=== PATIENT | female | born 1965 | race African-American/Black ===

== ENCOUNTER → 2016-08-26 | Outpatient (CLI) | payer MEDICAID ==
--- NOTE | 2016-08-26 14:10 | WOMENS IMAGING REPORT ---
EXAM DESCRIPTION: BILAT DIAGNOSTIC MAMMO W/CAD; U/S BREAST UNILATERAL, COMPL COMPLETED DATE/TIME: 08/26/2016 10:22 am; 08/26/2016 1:14 pm REASON FOR STUDY: BILATERAL LUMPS N63.0; LEFT BREAST LUMP N63.0 N63 UNSPECIFIED LUMP IN BREAST COMPARISON: 12/25/2015 and 08/15/2014. TECHNIQUE: Standard craniocaudal and mediolateral oblique views of each breast recorded using digita l acquisition. Additional true lateral views of both breasts were also acquired. LIMITATIONS: None. FINDINGS: RIGHT BREAST MASSES: No suspicious masses. CALCIFICATIONS: No new or suspicious calcifications. ARCHITECTURAL DISTORTION: None. DEVELOPING DENSITY: None. ASYMMETRY: None noted. OTHER: No other significant findings. LEFT BREAST MASSES: No suspicious masses. CALCIFICATIONS: No new or suspicious calcifications. ARCHITECTURAL DISTORTION: None. DEVELOPING DENSITY: None. ASYMMETRY: None noted. OTHER: No other significant finding. Read with the assistance of CAD: .[facility] - R2 Cenova Version 1.3 .[facility] Imaging - R2 Cenova Version 1.3 .[facility] Imaging - R2 Cenova Version 2.4 .[facility] - R2 Cenova Version 2.4 .[facility] - R2 Lead Technical Architect Version 9.2 BREAST ULTRASOUND: TECHNIQUE: Static and dynamic grayscale images acquired of the left breast in the specific areas of c linical/mammographic concern. Selected color Doppler images recorded. ELASTOGRAPHY PERFORMED: No. LIMITATIONS: None. FINDINGS: MASS: No mass identified. Normal glandular tissue. ELASTOGRAPHY CHARACTERISTICS: Not applicable. OTHER: No other significant finding. IMPRESSION: Stable mammographic appearance of both breasts. No worrisome mammographic finding in ei ther breast. Unremarkable ultrasound of the left breast. BREAST DENSITY: b. There are scattered areas of fibroglandular density. BIRAD: 0 Incomplete: Needs additional imaging evaluation and/or prior mammograms for comparison. RECOMMENDATION: RECOMMENDED FOLLOW UP: The patient presents with clinical history of bilateral breas t lumps. However, ultrasound of only the left breast was pre authorized. For completeness, ultrasou nd of the right breast in the area of concern should be performed. SPECIFIC INTERVENTION/IMAGING/CONSULTATION RECOMMENDED:Patient will return for ultrasound of the righ t breast after authorization is obtained. COMMUNICATION:The imaging findings were discussed with the patient. She is aware that additional adva nced imaging/consultation may be required. Her referring physician has been notified. COMMENT: The patient has been notified of the results by letter per SA requirements. Additional no tification policies are in place for contacting patient with suspicious or incomplete findings. Quality ID #[id number]: The [employer] recommends an annual screening mammogram for women aged 40 years or over. This facility utilizes a reminder system to ensure that all patients receive reminder letters, and/or direct phone calls for appointments. This includes reminders for routine scr eening mammograms, diagnostic mammograms, or other Breast Imaging Interventions when appropriate. Th is patient will be placed in the appropriate reminder system. The [employer] (ACR) has developed recommendations for screening MRI of the breast s in certain patient populations, to be used in conjunction with mammography. Breast MRI surveillanc e may be appropriate for women with more than 20% lifetime risk of developing breast cancer as deter mined by genetic testing, significant family history of the disease, or history of mantle radiation f or Hodgkins Disease. ACR Practice Guidelines 2008. TECHNICAL DOCUMENTATION: FINDING NUMBER: (1) ASSESSMENT: (1) JOB ID: [id number] [employer]- All Rights Reserved
--- NOTE | 2016-08-26 14:10 | WOMENS IMAGING REPORT ---
EXAM DESCRIPTION: BILAT DIAGNOSTIC MAMMO W/CAD; U/S BREAST UNILATERAL, COMPL COMPLETED DATE/TIME: 08/26/2016 10:22 am; 08/26/2016 1:14 pm REASON FOR STUDY: BILATERAL LUMPS N63.0; LEFT BREAST LUMP N63.0 N63 UNSPECIFIED LUMP IN BREAST COMPARISON: 12/25/2015 and 08/15/2014. TECHNIQUE: Standard craniocaudal and mediolateral oblique views of each breast recorded using digita l acquisition. Additional true lateral views of both breasts were also acquired. LIMITATIONS: None. FINDINGS: RIGHT BREAST MASSES: No suspicious masses. CALCIFICATIONS: No new or suspicious calcifications. ARCHITECTURAL DISTORTION: None. DEVELOPING DENSITY: None. ASYMMETRY: None noted. OTHER: No other significant findings. LEFT BREAST MASSES: No suspicious masses. CALCIFICATIONS: No new or suspicious calcifications. ARCHITECTURAL DISTORTION: None. DEVELOPING DENSITY: None. ASYMMETRY: None noted. OTHER: No other significant finding. Read with the assistance of CAD: .[facility] - R2 Cenova Version 1.3 .[facility] Imaging - R2 Cenova Version 1.3 .[facility] Imaging - R2 Cenova Version 2.4 .[facility] - R2 Cenova Version 2.4 .[facility] - R2 Needle Loom Tender Version 9.2 BREAST ULTRASOUND: TECHNIQUE: Static and dynamic grayscale images acquired of the left breast in the specific areas of c linical/mammographic concern. Selected color Doppler images recorded. ELASTOGRAPHY PERFORMED: No. LIMITATIONS: None. FINDINGS: MASS: No mass identified. Normal glandular tissue. ELASTOGRAPHY CHARACTERISTICS: Not applicable. OTHER: No other significant finding. IMPRESSION: Stable mammographic appearance of both breasts. No worrisome mammographic finding in ei ther breast. Unremarkable ultrasound of the left breast. BREAST DENSITY: b. There are scattered areas of fibroglandular density. BIRAD: 0 Incomplete: Needs additional imaging evaluation and/or prior mammograms for comparison. RECOMMENDATION: RECOMMENDED FOLLOW UP: The patient presents with clinical history of bilateral breas t lumps. However, ultrasound of only the left breast was pre authorized. For completeness, ultrasou nd of the right breast in the area of concern should be performed. SPECIFIC INTERVENTION/IMAGING/CONSULTATION RECOMMENDED:Patient will return for ultrasound of the righ t breast after authorization is obtained. COMMUNICATION:The imaging findings were discussed with the patient. She is aware that additional adva nced imaging/consultation may be required. Her referring physician has been notified. COMMENT: The patient has been notified of the results by letter per SA requirements. Additional no tification policies are in place for contacting patient with suspicious or incomplete findings. Quality ID #[id number]: The [employer] recommends an annual screening mammogram for women aged 40 years or over. This facility utilizes a reminder system to ensure that all patients receive reminder letters, and/or direct phone calls for appointments. This includes reminders for routine scr eening mammograms, diagnostic mammograms, or other Breast Imaging Interventions when appropriate. Th is patient will be placed in the appropriate reminder system. The [employer] (ACR) has developed recommendations for screening MRI of the breast s in certain patient populations, to be used in conjunction with mammography. Breast MRI surveillanc e may be appropriate for women with more than 20% lifetime risk of developing breast cancer as deter mined by genetic testing, significant family history of the disease, or history of mantle radiation f or Hodgkins Disease. ACR Practice Guidelines 2008. TECHNICAL DOCUMENTATION: FINDING NUMBER: (1) ASSESSMENT: (1) JOB ID: [id number] [employer]- All Rights Reserved
== END ==
LOC: WI 09:56
PROVIDERS: ATTEND Internal Medicine
DX: N63 Unspecified lump in breast (principal)
CPT/HCPCS: 76641; G0204; 77066

== ENCOUNTER → 2016-09-12 | Outpatient (CLI) | payer MEDICAID ==
--- NOTE | 2016-09-12 12:10 | WOMENS IMAGING REPORT ---
EXAM DESCRIPTION: U/S BREAST UNILATERAL, COMPL COMPLETED DATE/TIME: 09/12/2016 10:42 am REASON FOR STUDY: N63 N63 UNSPECIFIED LUMP IN BREAST COMPARISON: Mammogram dated 08/26/2016. TECHNIQUE: Real-time and static grayscale imaging performed of the right breast targeted to the area of clinical/mammographic concern. Selected color Doppler images recorded. LIMITATIONS: None. FINDINGS: MASS: No mass identified. Normal glandular tissue. OTHER: No other significant finding. IMPRESSION: No suspicious findings detected by ultrasound. BIRAD: 1 Negative. RECOMMENDATION: RECOMMENDED FOLLOW-UP: Follow-up as clinically indicated. COMMENT: The [employer] (ACR) has developed recommendations for screening MRI of the breasts in certain patient populations, to be used in conjunction with mammography. Breast MRI surveillance may be appropriate for women with more than 20% lifetime risk of developing breast cancer as determined by genetic testing, significant family history of the disease, or history of mantle radiation for Hodgkins Disease. ACR Practice Guidelines 2008. TECHNICAL DOCUMENTATION: JOB ID: [id number] [employer]- All Rights Reserved <Electronically signed by JEFFRY STERLING MD in [place]> 09/12/16 1210 [facility]
== END ==
LOC: WI 14:20
PROVIDERS: ATTEND Internal Medicine
DX: N63 Unspecified lump in breast (principal)
CPT/HCPCS: 76641

== ENCOUNTER → 2016-10-24 | Outpatient (CLI) | payer MEDICAID ==
--- NOTE | 2016-10-24 12:55 | RADIOLOGY REPORT (SQ) ---
EXAM DESCRIPTION: VENOUS UNILATERAL LOWER COMPLETED DATE/TIME: 10/24/2016 12:47 pm REASON FOR STUDY: SWELLING R22.41 LOCALIZED SWELLING, MASS AND LUMP, RIGHT LOWER LIMB COMPARISON: None. TECHNIQUE: Dynamic and static faye scale and color images acquired of the right leg venous system. S elected spectral images acquired with additional compression and augmentation maneuvers. The contrala teral common femoral vein and saphenofemoral junction were also imaged. Images stored on PACS. LIMITATIONS: None. FINDINGS: RIGHT COMMON FEMORAL: Normal phasicity, compression and augmentation. No visualized echogenic material on g ray scale. No defects on color images. FEMORAL: Normal compression and augmentation. No visualized echogenic material on faye scale. No defe cts on color images. POPLITEAL: Normal compression, augmentation. No visualized echogenic material on faye scale. No defec ts on color images. CALF VESSELS: Normal compression, augmentation. No visualized echogenic material on faye scale. No de fects on color images. GSV and SSV: Normal compression, augmentation. No visualized echogenic material on faye scale. No def ects on color images. ANY DEEP VENOUS INSUFFICIENCY: Not evaluated. ANY EVIDENCE OF POPLITEAL CYST: No. OTHER: No other significant finding. LEFT COMMON FEMORAL VEIN AND SAPHENOFEMORAL JUNCTION: Normal phasicity, compression and augmentation. No visualized echogenic material on faye scale. No de fects on color images. IMPRESSION: NO EVIDENCE OF DVT OR SVT IN THE RIGHT LEG. TECHNICAL DOCUMENTATION: JOB ID: [id number] [employer]- All Rights Reserved
== END ==
LOC: SP 11:38
PROVIDERS: ATTEND Internal Medicine
DX: R22.41 Localized swelling, mass and lump, right lower limb (principal)
CPT/HCPCS: 93971

== ENCOUNTER → 2016-10-31 | Outpatient (CLI) | payer MEDICAID ==
--- NOTE | 2016-10-31 13:53 | RADIOLOGY REPORT (SQ) ---
EXAM DESCRIPTION: KNEE RIGHT 2 VIEWS COMPLETED DATE/TIME: 10/31/2016 12:39 pm REASON FOR STUDY: PAIN IN RIGHT KNEE M25.561 PAIN IN RIGHT KNEE COMPARISON: None. NUMBER OF VIEWS: Two views. TECHNIQUE: AP and lateral radiographic images acquired of the right knee. LIMITATIONS: None. FINDINGS: MINERALIZATION: Normal. BONES: No acute fracture or dislocation. No worrisome bone lesions. JOINT: There is thus small joint effusion. SOFT TISSUES: No soft tissue swelling. No radio-opaque foreign body. OTHER: No other significant finding. IMPRESSION: Small joint effusion with no acute abnormality. TECHNICAL DOCUMENTATION: JOB ID: [id number] [employer]- All Rights Reserved
== END ==
LOC: OD 12:20
PROVIDERS: ATTEND Internal Medicine
DX: M25.561 Pain in right knee (principal)

== ENCOUNTER → 2016-11-06 | Outpatient (CLI) | payer MEDICAID ==
[2016-11-07 06:39] LABS: THYROXINE (T4) 9.2 ug/dL (4.5-12.0)
[2016-11-10 15:38] LABS: IMMUNOGLOBULIN A 188 mg/dL (87-352); IMMUNOGLOBULIN G 1077 mg/dL (700-1600)
[2016-11-11 08:11] LABS: IMMUNOGLOBULIN M 26 mg/dL (26-217)
== END ==
LOC: OD 12:29
PROVIDERS: ATTEND Specialist
DX: G82.20 Paraplegia, unspecified (principal); R20.0 Anesthesia of skin; M13.80 Other specified arthritis, unspecified site
CPT/HCPCS: 36415; 82550; 82607; 82784; 84165; 84436; 84443; 84480; 85652; 86038; 86430

== ENCOUNTER 2016-11-07 15:29 | Observation (INO) | payer MEDICAID ==
[2016-11-07 16:52] LABS: HEMATOCRIT 38.5 % (36.0-47.0); HEMOGLOBIN 13.1 g/dL (12.0-15.5); HGB HCT DIFFERENCE 0.8; MEAN CORPUSCULAR HEMOGLOBIN 31.7 pg (27.0-33.4); MEAN CORPUSCULAR VOLUME 93 fl (80-97); RED BLOOD COUNT 4.13 10^6/uL (3.72-5.28); RED CELL DISTRIBUTION WIDTH 14.1 % (11.5-14.0); WHITE BLOOD COUNT 7.9 10^3/uL (4.0-10.5)
--- NOTE | 2016-11-07 17:08 | RADIOLOGY REPORT (SQ) ---
EXAM DESCRIPTION: CHEST SINGLE VIEW COMPLETED DATE/TIME: 11/07/2016 4:43 pm REASON FOR STUDY: SOB COMPARISON: AP chest 04/15/2013 EXAM PARAMETERS: NUMBER OF VIEWS: One view. TECHNIQUE: Single frontal radiographic view of the chest acquired. RADIATION DOSE: NA LIMITATIONS: None. FINDINGS: LUNGS AND PLEURA: No opacities, masses or pneumothorax. No pleural effusion. MEDIASTINUM AND HILAR STRUCTURES: No masses. Contour normal. HEART AND VASCULAR STRUCTURES: Heart normal in size. Normal vasculature. BONES: No acute findings. HARDWARE: None in the chest. OTHER: No other significant finding. IMPRESSION: NO ACUTE RADIOGRAPHIC FINDING IN THE CHEST. TECHNICAL DOCUMENTATION: JOB ID: [id number]
[2016-11-07 17:19] LABS: ALANINE AMINOTRANSFERASE 36 U/L (9-52); ALBUMIN 4.3 g/dL (3.5-5.0); ALKALINE PHOSPHATASE 105 U/L (38-126); ANION GAP 9 (5-19); ASPARTATE AMINO TRANSFERASE 16 U/L (14-36); BILIRUBIN,DIRECT 0.4 mg/dL (0.0-0.4); BILIRUBIN,TOTAL 0.6 mg/dL (0.2-1.3); BLOOD UREA NITROGEN 18 mg/dL (7-20); CALCIUM 9.7 mg/dL (8.4-10.2); CARBON DIOXIDE 35 mmol/L (22-30); CHLORIDE 95 mmol/L (98-107); CREATININE RESULT 0.71 mg/dL (0.52-1.25); GLUCOSE 106 mg/dL (75-110); POTASSIUM 3.3 mmol/L (3.6-5.0); SODIUM 139.4 mmol/L (137-145); TOTAL PROTEIN 7.3 g/dL (6.3-8.2)
[2016-11-07] MEDS ORDERED: NORMAL SALINE 250 ML with FUROSEMIDE 250 MG IV PRN ×2 (17:30)
[2016-11-07] MEDS ORDERED: (PENDING PHARMACY ID) (Fluconazole [Diflucan] 150 MG) PO SCH (19:15)
[2016-11-07] MEDS ORDERED: (PENDING PHARMACY ID) (Exenatide Microspheres [Bydureon Pen] 2 MG) SUBCUT SCH (19:15)
[2016-11-07] MEDS ORDERED: POTASSIUM CHLORIDE 10 MEQ TABLET.SA PO ONE (19:30)
--- NOTE | 2016-11-07 19:43 | PDOC H&P ---
History of Present Illness Admission Date/PCP: 11/07/16 15:29 SUSHILA QUINTERO MD History of Present Illness: CELINA GAVIN is a 51 year old female, she has a history of type 2 diabetes mellitus, she came to the office today for evaluation of progressive lower extremity swelling.She was admitted for evaluation and management of her symptoms. The serum BNP is normal this virtually rule out CHF. The urine protein creatinine ratio is normal this rule out nephrotic syndrome due to fluid retention is probably weight related and also due to medication. Past Medical History Cardiac Medical History: Reports: Hyperlipidema, Hypertension, Heart Murmur - when pt was a child Pulmonary Medical History: Reports: Asthma Denies: Tuberculosis Endocrine Medical History: Reports: Diabetes Mellitus Type 2, Hypothyroidism GI Medical History: Reports: Gastroesophageal Reflux Disease Psychiatric Medical History: Reports: Depression Past Surgical History Past Surgical History: Reports: Section, Tonsillectomy Denies: Pacemaker Social History Smoking Status: Former Smoker Frequency of Alcohol Use: Rare Hx Recreational Drug Use: No Drugs: None Hx Prescription Drug Abuse: No Family History Family History: Reviewed & Not Pertinent Parental Family History Reviewed: Yes Children Family History Reviewed: Yes Sibling(s) Family History Reviewed.: Yes Medication/Allergy Home Medications: Metformin HCl 1,000 mg PO BID 11/13/11 Pravastatin Sodium [Pravachol] 40 mg PO DAILY 11/13/11 Clopidogrel Bisulfate [Plavix 75 Mg Tablet] 75 mg PO DAILY 11/15/11 Furosemide [Lasix 40 mg Tablet] 40 mg PO QAM 04/15/13 Acetaminophen [Tylenol] 650 mg PO Q6 PRN 11/07/16 Canagliflozin [Invokana] 300 mg PO DAILY 11/07/16 Exenatide Microspheres [Bydureon Pen] 2 mg SUBCUT ASDIR 11/07/16 Fluconazole [Diflucan] 150 mg PO ASDIR 11/07/16 Glipizide 10 mg PO DAILY 11/07/16 Insulin Glargine,Hum.rec.anlog [Lantus Insulin 100 Unit/mL] 25 unit SUBCUT BID 11/07/16 Losartan/Hydrochlorothiazide [Losartan-Hctz 100-25 mg Tab] 1 tab PO DAILY Multivit with Iron,Minerals [Compete] 1 each PO DAILY 11/07/16 Olopatadine HCl [Pazeo] 1 drop OU DAILY 11/07/16 Pioglitazone HCl [Actos] 30 mg PO DAILY 11/07/16 Potassium Chloride [Klor-Con] 20 meq PO DAILY 11/07/16 Varenicline Tartrate [Chantix] 1 tab PO BID 11/07/16 Allergies/Adverse Reactions: JEREMY Inhibitors [Jeremy Inhibitors] Allergy (Verified 04/15/13 14:43) aspirin [Aspirin] Allergy (Verified 04/15/13 14:43) cyclosporine [Cyclosporine] Allergy (Verified 04/15/13 14:43) iodine [Iodine] Allergy (Verified 04/15/13 14:43) Penicillins Allergy (Verified 04/15/13 14:43) nsaid Allergy (Uncoded 11/13/11 21:57) Review of Systems Constitutional: ABSENT: chills, fever(s), headache(s), weight gain, weight loss Eyes: ABSENT: visual disturbances Ears: ABSENT: hearing changes Cardiovascular: ABSENT: chest pain, dyspnea on exertion, edema, orthropnea, palpitations Respiratory: ABSENT: cough, hemoptysis Gastrointestinal: ABSENT: abdominal pain, constipation, diarrhea, hematemesis, hematochezia, nausea, vomiting Genitourinary: ABSENT: dysuria, hematuria Musculoskeletal: ABSENT: joint swelling Integumentary: ABSENT: rash, wounds Neurological: ABSENT: abnormal gait, abnormal speech, confusion, dizziness, focal weakness, syncope Psychiatric: ABSENT: anxiety, depression, homidical ideation, suicidal ideation Endocrine: ABSENT: cold intolerance, heat intolerance, menstrual abnormalities, polydipsia, polyuria Hematologic/Lymphatic: ABSENT: easy bleeding, easy bruising, lymphadenopathy Physical Exam Vital Signs: Temp Pulse Resp BP Pulse Ox 97.8 F 70 19 107/61 100 11/07/16 16:28 11/07/16 18:12 11/07/16 16:28 11/07/16 16:28 11/07/16 16:28 Intake & Output 11/06/16 11/07/16 11/08/16 06:59 06:59 06:59 Weight 109.2 kg General appearance: PRESENT: no acute distress, well-developed, well-nourished Head exam: PRESENT: atraumatic, normocephalic Eye exam: ABSENT: scleral icterus Ear exam: PRESENT: normal external ear exam Mouth exam: PRESENT: moist, tongue midline Neck exam: PRESENT: full ROM Respiratory exam: PRESENT: clear to auscultation franco Cardiovascular exam: PRESENT: RRR. ABSENT: diastolic murmur, rubs, systolic murmur Pulses: PRESENT: normal dorsalis pedis pul, +2 pedal pulses bilateral Vascular exam: PRESENT: normal capillary refill GI/Abdominal exam: PRESENT: normal bowel sounds, soft Rectal exam: PRESENT: deferred Extremities exam: PRESENT: pedal edema Neurological exam: PRESENT: alert, awake, oriented to person, oriented to place , oriented to time, oriented to situation, CN II-XII grossly intact. ABSENT: motor sensory deficit Psychiatric exam: PRESENT: appropriate affect, normal mood Skin exam: PRESENT: dry, intact, warm Results Laboratory Results: 11/07/16 16:45 11/07/16 16:45 11/07/16 11/07/16 16:45 16:45 WBC 7.9 RBC 4.13 Hgb 13.1 Hct 38.5 MCV 93 MCH 31.7 MCHC 34.0 RDW 14.1 H Plt Count 293 Sodium 139.4 Potassium 3.3 L Chloride 95 L Carbon Dioxide 35 H Anion Gap 9 BUN 18 Creatinine 0.71 Est GFR ( Amer) > 60 Est GFR (Non-Af Amer) > 60 Glucose 106 Calcium 9.7 Total Bilirubin 0.6 AST 16 ALT 36 Alkaline Phosphatase 105 Total Protein 7.3 Albumin 4.3 11/07/16 16:45 NT-Pro-B Natriuret Pep 55 Impressions: Chest X-Ray 11/07/16 00:00 IMPRESSION: NO ACUTE RADIOGRAPHIC FINDING IN THE CHEST. Assessment & Plan - Diagnosis (1) Edema, unspecified Qualifiers: Edema type: unspecified Qualified Code(s): R60.9 - Edema, unspecified Is this a current diagnosis for this admission?: Yes Plan: Patient was admitted for observation for evaluation and management of lower extremity edema (2) Morbid (severe) obesity due to excess calories Is this a current diagnosis for this admission?: Yes (3) Diabetes mellitus type 2 in obese Is this a current diagnosis for this admission?: Yes
[2016-11-07 19:59] LABS: APPEARANCE,URINE CLEAR; BILIRUBIN,URINE NEGATIVE (NEGATIVE); GLUCOSE, URINE >=500 mg/dL (NEGATIVE); KETONES,URINE NEGATIVE (NEGATIVE); LEUKOCYTE ESTERASE,URINE NEGATIVE (NEGATIVE); NITRITE,URINE NEGATIVE (NEGATIVE); PROTEIN,URINE NEGATIVE (NEGATIVE); URINE SPECIFIC GRAVITY 1.018; UROBILINOGEN,URINE NEGATIVE mg/dL (<2.0)
[2016-11-07 20:10] LABS: URINE CREATININE 52.6 mg/dL (15-278); URINE PROTEIN 9.4 mg/dL (<12)
[2016-11-07] MEDS: ACETAMINOPHEN 325 MG TABLET PO PRN (20:20)
--- NOTE | 2016-11-07 20:50 | PDOC DISCHARGE SUMMARY ---
General - Admit/Disc Date/PCP Admission Date/Primary Care Provider: 11/07/16 15:29 SUSHILA QUINTERO MD Discharge Date: 11/08/16 - Discharge Diagnosis (1) Edema, unspecified Is this a current diagnosis for this admission?: Yes (2) Morbid (severe) obesity due to excess calories Is this a current diagnosis for this admission?: Yes (3) Diabetes mellitus type 2 in obese Is this a current diagnosis for this admission?: Yes - Additional Information Discharge Activity: Activity As Tolerated Home Medications: Metformin HCl 1,000 mg PO BID 11/13/11 Pravastatin Sodium [Pravachol] 40 mg PO DAILY 11/13/11 Clopidogrel Bisulfate [Plavix 75 mg Tablet] 75 mg PO DAILY 11/15/11 Furosemide [Lasix 40 mg Tablet] 40 mg PO QAM 04/15/13 Acetaminophen [Tylenol] 650 mg PO Q6 PRN 11/07/16 Canagliflozin [Invokana] 300 mg PO DAILY 11/07/16 Exenatide Microspheres [Bydureon Pen] 2 mg SUBCUT ASDIR 11/07/16 Fluconazole [Diflucan] 150 mg PO ASDIR 11/07/16 Glipizide 10 mg PO DAILY 11/07/16 Insulin Glargine,Hum.rec.anlog [Lantus Insulin 100 Unit/mL] 25 unit SUBCUT BID 11/07/16 Losartan/Hydrochlorothiazide [Losartan-Hctz 100-25 mg Tab] 1 tab PO DAILY Multivit with Iron,Minerals [Compete] 1 each PO DAILY 11/07/16 Olopatadine HCl [Pazeo] 1 drop OU DAILY 11/07/16 Pioglitazone HCl [Actos] 30 mg PO DAILY 11/07/16 Potassium Chloride [Klor-Con] 20 meq PO DAILY 11/07/16 Varenicline Tartrate [Chantix] 1 tab PO BID 11/07/16 History of Present Illness History of Present Illness: CELINA GAVIN is a 51 year old female, she has a history of type 2 diabetes mellitus, she came to the office today for evaluation of progressive lower extremity swelling.She was admitted for evaluation and management of her symptoms. The serum BNP is normal this virtually rule out CHF. The urine protein creatinine ratio is normal this rule out nephrotic syndrome due to fluid retention is probably weight related and also due to medication. Hospital Course Hospital Course: She was admitted for observation and evaluation of lower extremity edema she was treated with Lasix infusion Physical Exam Vital Signs: Temp Pulse Resp BP Pulse Ox 98.4 F 77 14 111/60 100 11/07/16 19:49 11/07/16 19:49 11/07/16 19:49 11/07/16 19:49 11/07/16 19:49 Intake & Output 11/06/16 11/07/16 11/08/16 06:59 06:59 06:59 Weight 109.2 kg General appearance: PRESENT: no acute distress, well-developed, well-nourished Head exam: PRESENT: atraumatic, normocephalic Eye exam: PRESENT: conjunctiva pink, EOMI, PERRLA Ear exam: PRESENT: normal external ear exam Mouth exam: PRESENT: moist, tongue midline Neck exam: PRESENT: full ROM Respiratory exam: PRESENT: clear to auscultation franco Cardiovascular exam: PRESENT: RRR, +S1, +S2 Pulses: PRESENT: normal dorsalis pedis pul, +2 pedal pulses bilateral Vascular exam: PRESENT: normal capillary refill GI/Abdominal exam: PRESENT: normal bowel sounds, soft Rectal exam: PRESENT: deferred Neurological exam: PRESENT: alert, awake, oriented to person, oriented to place , oriented to time, oriented to situation, CN II-XII grossly intact Psychiatric exam: PRESENT: appropriate affect, normal mood Skin exam: PRESENT: dry, intact, warm Results Laboratory Results: 11/07/16 16:45 11/07/16 16:45 11/07/16 11/07/16 11/07/16 16:45 16:45 19:34 WBC 7.9 RBC 4.13 Hgb 13.1 Hct 38.5 MCV 93 MCH 31.7 MCHC 34.0 RDW 14.1 H Plt Count 293 Sodium 139.4 Potassium 3.3 L Chloride 95 L Carbon Dioxide 35 H Anion Gap 9 BUN 18 Creatinine 0.71 Est GFR ( Amer) > 60 Est GFR (Non-Af Amer) > 60 Glucose 106 Calcium 9.7 Total Bilirubin 0.6 AST 16 ALT 36 Alkaline Phosphatase 105 Total Protein 7.3 Albumin 4.3 Urine Color STRAW Urine Appearance CLEAR Urine pH 7.0 Ur Specific [place] 1.018 Urine Protein NEGATIVE Urine Glucose (UA) >=500 H Urine Ketones NEGATIVE Urine Blood NEGATIVE Urine Nitrite NEGATIVE Ur Leukocyte Esterase NEGATIVE Urine WBC (Auto) 0 Urine RBC (Auto) 0 11/07/16 16:45 NT-Pro-B Natriuret Pep 55 Impressions: Chest X-Ray 11/07/16 00:00 IMPRESSION: NO ACUTE RADIOGRAPHIC FINDING IN THE CHEST.
[2016-11-07] MEDS: INSULIN GLARGINE,HUM.REC.ANLOG 300 UNIT/3 ML INSULN.PEN SUBCUT SCH (21:39)
[2016-11-07 22:53] LABS: HEMATOCRIT 40.6 % (36.0-47.0); HEMOGLOBIN 13.8 g/dL (12.0-15.5); HGB HCT DIFFERENCE 0.8; MEAN CORPUSCULAR HEMOGLOBIN 31.9 pg (27.0-33.4); MEAN CORPUSCULAR HGB CONC 33.9 g/dL (32.0-36.0); MEAN CORPUSCULAR VOLUME 94 fl (80-97); RED BLOOD COUNT 4.31 10^6/uL (3.72-5.28)
[2016-11-07 23:03] LABS: PROTHROMBIN TIME 12.5 SEC (11.4-15.4)
[2016-11-07 23:04] LABS: PARTIAL THROMBOPLASTIN TIME 24.8 SEC (23.5-35.8)
[2016-11-07 23:07] LABS: CREATININE RESULT 0.66 mg/dL (0.52-1.25)
[2016-11-08] MEDS: ACETAMINOPHEN 325 MG TABLET PO PRN ×2 (03:41→09:09)
[2016-11-08] MEDS ORDERED: METFORMIN HCL 500 MG TABLET PO SCH (08:00)
[2016-11-08] MEDS ORDERED: FUROSEMIDE 40 MG TABLET PO SCH (08:00)
[2016-11-08 09:04] LABS: BLOOD UREA NITROGEN 19 mg/dL (7-20); CALCIUM 9.6 mg/dL (8.4-10.2); CHLORIDE 92 mmol/L (98-107); CREATININE RESULT 0.73 mg/dL (0.52-1.25); GLUCOSE 132 mg/dL (75-110); POTASSIUM 3.4 mmol/L (3.6-5.0); SODIUM 141.2 mmol/L (137-145)
[2016-11-08] MEDS: INSULIN GLARGINE,HUM.REC.ANLOG 300 UNIT/3 ML INSULN.PEN SUBCUT SCH (09:05)
[2016-11-08 09:10] LABS: ANION GAP 9 (5-19)
[2016-11-08 09:19] LABS: CARBON DIOXIDE 40 mmol/L (22-30)
--- NOTE | 2016-11-08 09:55 | PDOC PROGRESS REPORT ---
Subjective Progress Note for:: 11/08/16 Subjective:: Patient is currently doing fair patient was actually discharged but patients wants to stay another day Since denied any chest pain without any shortness of the breath Potassium was 3.4 this morning Physical Exam Vital Signs: Temp Pulse Resp BP Pulse Ox 98.2 F 63 16 108/69 100 11/08/16 05:13 11/08/16 07:00 11/08/16 05:13 11/08/16 05:13 11/08/16 05:13 Intake & Output 11/07/16 11/08/16 11/09/16 06:59 06:59 06:59 Intake Total 1614 Output Total 5300 Balance -3686 Weight 109.2 kg General appearance: PRESENT: no acute distress, well-developed, well-nourished Head exam: PRESENT: atraumatic, normocephalic Eye exam: PRESENT: conjunctiva pink, EOMI, PERRLA. ABSENT: scleral icterus Ear exam: PRESENT: normal external ear exam Mouth exam: PRESENT: moist, tongue midline Neck exam: PRESENT: full ROM. ABSENT: carotid bruit, JVD, lymphadenopathy, thyromegaly Respiratory exam: PRESENT: clear to auscultation franco Cardiovascular exam: PRESENT: RRR. ABSENT: diastolic murmur, rubs, systolic murmur Pulses: PRESENT: normal dorsalis pedis pul, +2 pedal pulses bilateral Vascular exam: PRESENT: normal capillary refill GI/Abdominal exam: PRESENT: normal bowel sounds, soft. ABSENT: distended, guarding, mass, organolmegaly, rebound, tenderness Rectal exam: PRESENT: deferred Neurological exam: PRESENT: alert, awake, oriented to person, oriented to place , oriented to time, oriented to situation, CN II-XII grossly intact. ABSENT: motor sensory deficit Psychiatric exam: PRESENT: appropriate affect, normal mood. ABSENT: homicidal ideation, suicidal ideation Skin exam: PRESENT: dry, intact, warm. ABSENT: cyanosis, rash Results Laboratory Results: 11/07/16 22:35 11/08/16 07:54 11/07/16 11/07/16 11/07/16 16:45 16:45 19:34 WBC 7.9 RBC 4.13 Hgb 13.1 Hct 38.5 MCV 93 MCH 31.7 MCHC 34.0 RDW 14.1 H Plt Count 293 Sodium 139.4 Potassium 3.3 L Chloride 95 L Carbon Dioxide 35 H Anion Gap 9 BUN 18 Creatinine 0.71 Est GFR ( Amer) > 60 Est GFR (Non-Af Amer) > 60 Glucose 106 Calcium 9.7 Total Bilirubin 0.6 AST 16 ALT 36 Alkaline Phosphatase 105 Total Protein 7.3 Albumin 4.3 Urine Color STRAW Urine Appearance CLEAR Urine pH 7.0 Ur Specific [place] 1.018 Urine Protein NEGATIVE Urine Glucose (UA) >=500 H Urine Ketones NEGATIVE Urine Blood NEGATIVE Urine Nitrite NEGATIVE Ur Leukocyte Esterase NEGATIVE Urine WBC (Auto) 0 Urine RBC (Auto) 0 11/07/16 11/07/16 11/08/16 22:35 22:35 07:54 WBC 10.0 RBC 4.31 Hgb 13.8 Hct 40.6 MCV 94 MCH 31.9 MCHC 33.9 RDW 14.0 Plt Count 326 Sodium 141.2 Potassium 3.4 L Chloride 92 L Carbon Dioxide 40 H* Anion Gap 9 BUN 19 Creatinine 0.66 0.73 Est GFR ( Amer) > 60 > 60 Est GFR (Non-Af Amer) > 60 > 60 Glucose 132 H Calcium 9.6 Total Bilirubin AST ALT Alkaline Phosphatase Total Protein Albumin Urine Color Urine Appearance Urine pH Ur Specific [place] Urine Protein Urine Glucose (UA) Urine Ketones Urine Blood Urine Nitrite Ur Leukocyte Esterase Urine WBC (Auto) Urine RBC (Auto) 11/07/16 16:45 NT-Pro-B Natriuret Pep 55 Impressions: Chest X-Ray 11/07/16 00:00 IMPRESSION: NO ACUTE RADIOGRAPHIC FINDING IN THE CHEST. Assessment & Plan - Diagnosis (1) Diabetes mellitus type 2 in obese Is this a current diagnosis for this admission?: Yes (2) Edema, unspecified Qualifiers: Edema type: unspecified Qualified Code(s): R60.9 - Edema, unspecified Is this a current diagnosis for this admission?: Yes (3) Morbid (severe) obesity due to excess calories Is this a current diagnosis for this admission?: Yes - Time Time Spent with patient: 15-24 minutes Medications reviewed and adjusted accordingly: Yes Anticipated discharge: Home Within: Other - Inpatient Certification Medical Necessity: Need Close Monitoring Due to Risk of Patient Decompensation 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 Lasix and continues to monitor for the next 24 hours and repeat the lab in the morning
[2016-11-08] MEDS ORDERED: PIOGLITAZONE HCL 30 MG TABLET PO SCH (10:00)
[2016-11-08] MEDS ORDERED: OLOPATADINE HCL 0.1% OPH SOLN 5 ML OU SCH (10:00)
[2016-11-08] MEDS ORDERED: GLIPIZIDE 10 MG TABLET PO SCH (10:00)
[2016-11-08] MEDS ORDERED: MULTIVITAMINS W-IRON TABLET, CHEWABLE PO SCH (10:00)
[2016-11-08] MEDS ORDERED: (PENDING PHARMACY ID) (Losartan/Hydrochlorothiazide [Losartan-Hctz 100-25 Mg Tab] 1 TAB) PO SCH (10:00)
[2016-11-08] MEDS ORDERED: VARENICLINE TARTRATE 1 MG TABLET PO SCH (10:00)
[2016-11-08] MEDS ORDERED: ATORVASTATIN CALCIUM 10 MG TABLET PO SCH (10:00)
[2016-11-08] MEDS ORDERED: (PENDING PHARMACY ID) (Canagliflozin [Invokana] 300 MG) PO SCH (10:00)
[2016-11-08] MEDS ORDERED: LOSARTAN POTASSIUM 50 MG TABLET PO SCH (10:00)
[2016-11-08] MEDS ORDERED: HYDROCHLOROTHIAZIDE 25 MG TABLET PO SCH (10:00)
[2016-11-08] MEDS ORDERED: POTASSIUM CHLORIDE 10 MEQ TABLET.SA PO SCH (10:00)
[2016-11-08] MEDS ORDERED: (PENDING PHARMACY ID) (Pravastatin Sodium [Pravachol] 40 MG) PO SCH (10:00)
[2016-11-08] MEDS ORDERED: MULTIVIT WITH IRON MINERALS PO SCH (10:00)
[2016-11-08] MEDS ORDERED: CLOPIDOGREL BISULFATE 75 MG TABLET PO SCH (10:00)
[2016-11-08] MEDS ORDERED: ENOXAPARIN SODIUM INJ 40 MG/0.4 ML DISP.SYRIN SUBCUT SCH (10:00)
[2016-11-08 11:30] VITALS: BP 107/61
[2016-11-08] MEDS ORDERED: PHARMACY COMMUNICATION ORDER MC SCH (18:00)
== END 2016-11-08 12:15 | disposition home or self-care (01) ==
LOC: 5TH 15:29 → 3N 15:52
PROVIDERS: ADMIT Internal Medicine; ATTEND Internal Medicine
DX: R60.9 Edema, unspecified (principal); E66.01 Morbid (severe) obesity due to excess calories; E11.9 Type 2 diabetes mellitus without complications; I10 Essential (primary) hypertension; E78.5 Hyperlipidemia, unspecified; Z79.4 Long term (current) use of insulin; Z79.899 Other long term (current) drug therapy; Z79.02 Long term (current) use of antithrombotics/antiplatelets; Z68.35 Body mass index [BMI] 35.0-35.9, adult
CPT/HCPCS: 36415 ×2; 87040; 82962 ×2; 82565; 84156; 82570; 85027; 85610; 85730; 80076; 80048 ×2; 81001; 83036; 83880; 71010; G0378 ×3; G0379; J3490 ×10; J1940; J1815; J1650; J7050

== ENCOUNTER → 2017-03-07 | Outpatient (CLI) | payer MEDICAID ==
[2017-03-07 14:57] LABS: CHLAM PCR NOT DETECTED (NOT DETECT); GON PCR NOT DETECTED (NOT DETECT)
== END ==
LOC: LAB 13:02
PROVIDERS: ATTEND Emergency Medicine
DX: N94.89 Other specified conditions associated with female genital organs and menstrual cycle (principal); L29.8 Other pruritus
CPT/HCPCS: 87491; 87591

== ENCOUNTER → 2018-03-31 | Outpatient (CLI) | payer MEDICAID ==
--- NOTE | 2018-03-31 09:38 | RADIOLOGY REPORT (SQ) ---
EXAM DESCRIPTION: CT ABD/PELVIS NO ORAL OR IV COMPLETED DATE/TIME: 03/31/2018 9:29 am REASON FOR STUDY: ABDOMINAL PAIN R10.9 UNSPECIFIED ABDOMINAL PAIN COMPARISON: None. TECHNIQUE: CT scan of the abdomen and pelvis performed without intravenous or oral contrast. Images reviewed with lung, soft tissue, and bone windows. Reconstructed coronal and sagittal MPR images revi ewed. All images stored on PACS. All CT scanners at this facility use dose modulation, iterative reconstruction, and/or weight based d osing when appropriate to reduce radiation dose to as low as reasonably achievable (ALARA). [facility]: Dose Right [facility]: CareDose [facility]: Dose Right [facility]: Teradose 4D [facility]: Smart AccuRev RADIATION DOSE: CT Rad equipment meets quality standard of care and radiation dose reduction techniq ues were employed. CTDIvol: 9.2 mGy. DLP: 493 mGy-cm.mGy. LIMITATIONS: None. FINDINGS: LOWER CHEST: No significant findings. No nodules or infiltrates. NON-CONTRASTED LIVER, SPLEEN, ADRENALS: Evaluation limited by lack of IV contrast. No identified sign ificant masses. PANCREAS: No masses. No peripancreatic inflammatory changes. GALLBLADDER: No identified stones by CT criteria. No inflammatory changes to suggest cholecystitis. RIGHT KIDNEY AND URETER: No suspicious masses. Assessment limited by lack of IV contrast. There are small nonobstructing stone in the lower pole. No hydronephrosis or hydroureter. LEFT KIDNEY AND URETER: No suspicious masses. Assessment limited by lack of IV contrast. There are small nonobstructing stones in the lower pole. No hydronephrosis or hydroureter. AORTA AND RETROPERITONEUM: No aneurysm. No retroperitoneal masses or adenopathy. BOWEL AND PERITONEAL CAVITY: No obvious masses or inflammatory changes. No free fluid. APPENDIX: Normal. PELVIS, BLADDER, AND ABDOMINAL WALL:No abnormal masses. No free fluid. Bladder normal. BONES: No significant findings. OTHER: No other significant finding. IMPRESSION: Small nonobstructing bilateral renal calculi. No acute findings in the abdomen or pelvi s. COMMENT: Quality ID # [id number]: Final reports with documentation of one or more dose reduction techniques (e.g., Automated exposure control, adjustment of the mA and/or kV according to patient size, use of iterative reconstruction technique) TECHNICAL DOCUMENTATION: JOB ID: [id number]- All Rights Reserved Reading location - IP/workstation name: [email or web address]
== END ==
LOC: RAD 08:55
PROVIDERS: ATTEND Internal Medicine
DX: R10.9 Unspecified abdominal pain (principal)
CPT/HCPCS: 74176

== ENCOUNTER 2018-08-25 15:50 | Observation (INO) | payer MEDICAID ==
[2018-08-25] MEDS ORDERED: ASPIRIN 81 MG TABLET, CHEWABLE PO ONE (17:00)
[2018-08-25] MEDS ORDERED: CLOPIDOGREL BISULFATE 300 MG TABLET PO ONE (17:00)
[2018-08-25 18:07] LABS: ABSOLUTE EOSINOPHILS # (AUTO) 0.2 10^3/uL (0.0-0.6); ABSOLUTE LYMPHOCYTES (AUTO) 3.3 10^3/uL (0.5-4.7); ABSOLUTE MONOCYTES (AUTO) 0.5 10^3/uL (0.1-1.4); ABSOLUTE NEUT (AUTO) 1.8 10^3/uL (1.7-8.2); BASOPHILS % (AUTO) 0.6 % (0-2); EOSINOPHILS % (AUTO) 3.7 % (0-6); HEMATOCRIT 38.5 % (36.0-47.0); HEMOGLOBIN 13.1 g/dL (12.0-15.5); LYMPHOCYTES % (AUTO) 56.9 % (13-45); MEAN CORPUSCULAR HEMOGLOBIN 31.6 pg (27.0-33.4); MEAN CORPUSCULAR HGB CONC 34.1 g/dL (32.0-36.0); MEAN CORPUSCULAR VOLUME 93 fl (80-97); PLATELET COUNT 309 10^3/uL (150-450); RED BLOOD COUNT 4.15 10^6/uL (3.72-5.28); SEGMENTED NEUTROPHILS % (AUTO) 30.8 % (42-78); TOTAL CELLS COUNTED % (AUTO) 100 %; WHITE BLOOD COUNT 5.8 10^3/uL (4.0-10.5)
[2018-08-25 18:21] LABS: ALANINE AMINOTRANSFERASE 19 U/L (9-52); ALBUMIN 4.5 g/dL (3.5-5.0); ALKALINE PHOSPHATASE 83 U/L (38-126); ANION GAP 10 (5-19); ASPARTATE AMINO TRANSFERASE 20 U/L (14-36); BILIRUBIN,DIRECT 0.3 mg/dL (0.0-0.4); BILIRUBIN,TOTAL 0.3 mg/dL (0.2-1.3); BLOOD UREA NITROGEN 22 mg/dL (7-20); CALCIUM 9.4 mg/dL (8.4-10.2); CARBON DIOXIDE 31 mmol/L (22-30); CHLORIDE 99 mmol/L (98-107); GLUCOSE 98 mg/dL (75-110); POTASSIUM 3.1 mmol/L (3.6-5.0); SODIUM 140.3 mmol/L (137-145); TOTAL PROTEIN 7.9 g/dL (6.3-8.2)
[2018-08-25 18:32] LABS: CREATINE KINASE MB 0.94 ng/mL (<4.55)
[2018-08-25 18:36] LABS: TROPONIN I < 0.012 ng/mL
--- NOTE | 2018-08-25 18:42 | RADIOLOGY REPORT (SQ) ---
EXAM DESCRIPTION: CHEST 2 VIEWS COMPLETED DATE/TIME: 08/25/2018 6:32 pm REASON FOR STUDY: Chest pain COMPARISON: 04/15/2013 TECHNIQUE: Frontal and lateral radiographic views of the chest acquired. NUMBER OF VIEWS: Two view. LIMITATIONS: None. FINDINGS: LUNGS AND PLEURA: No pneumothorax. No consolidation or pleural effusion. MEDIASTINUM AND HILAR STRUCTURES: Stable. HEART AND VASCULAR STRUCTURES: Stable. BONES: No acute findings. HARDWARE: None in the chest. OTHER: No other significant finding. IMPRESSION: NO ACUTE FINDINGS. TECHNICAL DOCUMENTATION: JOB ID: [id number] [employer]- All Rights Reserved Reading location - IP/workstation name: [email or web address]
[2018-08-25] MEDS ORDERED: (PENDING PHARMACY ID) (Potassium Chloride [Klor-Con M20] 40 MEQ) PO SCH (19:00)
[2018-08-25] MEDS ORDERED: (PENDING PHARMACY ID) (Pravastatin Sodium [Pravachol] 40 MG) PO SCH (19:00)
[2018-08-25] MEDS ORDERED: MULTIVIT WITH IRON MINERALS PO SCH (19:00)
[2018-08-25] MEDS ORDERED: (PENDING PHARMACY ID) (Losartan/Hydrochlorothiazide [Losartan-Hctz 100-25 Mg Tab] 1 TAB) PO SCH (19:00)
[2018-08-25] MEDS ORDERED: (PENDING PHARMACY ID) (Empagliflozin [Jardiance] 25 MG) PO SCH (19:00)
[2018-08-25] MEDS ORDERED: SEMAGLUTIDE 0.25 MG SQ SCH (19:00)
--- NOTE | 2018-08-25 19:35 | PDOC H&P ---
History of Present Illness Admission Date/PCP: 08/25/18 15:50 SUSHILA QUINTERO MD History of Present Illness: CELINA GAVIN is a 52 year old female,She came to the office today for evaluation of chest pain, The chest pain is substernal, it radiates to the left upper extremities, she has multiple risk factors for ischemic heart disease Past Medical History Cardiac Medical History: Reports: Hyperlipidema, Hypertension, Heart Murmur - when pt was a child Pulmonary Medical History: Reports: Asthma Denies: Tuberculosis Endocrine Medical History: Reports: Diabetes Mellitus Type 2, Hypothyroidism GI Medical History: Reports: Gastroesophageal Reflux Disease Psychiatric Medical History: Reports: Depression Past Surgical History Past Surgical History: Reports: Section, Tonsillectomy Denies: Pacemaker Social History Smoking Status: Current Every Day Smoker Frequency of Alcohol Use: None Hx Recreational Drug Use: No Drugs: None Hx Prescription Drug Abuse: No Family History Family History: Reviewed & Not Pertinent Parental Family History Reviewed: Yes Children Family History Reviewed: Yes Sibling(s) Family History Reviewed.: Yes Medication/Allergy Home Medications: Pravastatin Sodium [Pravachol] 40 mg PO DAILY 11/13/11 Clopidogrel Bisulfate [Plavix 75 mg Tablet] 75 mg PO DAILY 11/15/11 Furosemide [Lasix 40 mg Tablet] 40 mg PO QAM 04/15/13 Exenatide Microspheres [Bydureon Pen] 2 mg SUBCUT Q7D 11/07/16 Insulin Glargine,Hum.rec.anlog [Lantus Insulin 100 Unit/mL Insulin Pen] 25 unit SUBCUT DAILY 11/07/16 Losartan/Hydrochlorothiazide [Losartan-Hctz 100-25 mg Tab] 1 tab PO DAILY 11/07 Multivit with Iron,Minerals [Compete] 1 each PO DAILY 11/07/16 Diphenhydramine HCl [Benadryl] 75 mg PO ASDIR PRN 08/25/18 Doxepin HCl 75 mg PO QHS 08/25/18 Empagliflozin [Jardiance] 25 mg PO DAILY 08/25/18 Potassium Chloride [Klor-Con M20] 40 meq PO DAILY 08/25/18 Semaglutide [Ozempic] 0.25 mg SQ Q7D 08/25/18 Topiramate [Topamax] 200 mg PO QHS 08/25/18 Travoprost [Travatan Z] 1 drop OS QHS 08/25/18 Allergies/Adverse Reactions: JEREMY Inhibitors [Jeremy Inhibitors] Allergy (Verified 04/15/13 14:43) aspirin [Aspirin] Allergy (Verified 04/15/13 14:43) cyclosporine [Cyclosporine] Allergy (Verified 04/15/13 14:43) iodine [Iodine] Allergy (Verified 04/15/13 14:43) Penicillins Allergy (Verified 04/15/13 14:43) onion Adverse Reaction (Verified 08/25/18 18:03) nsaid Allergy (Uncoded 11/13/11 21:57) Review of Systems Constitutional: ABSENT: chills, fever(s), headache(s), weight gain, weight loss Eyes: ABSENT: visual disturbances Ears: ABSENT: hearing changes Cardiovascular: PRESENT: chest pain Respiratory: ABSENT: cough, hemoptysis Gastrointestinal: ABSENT: abdominal pain, constipation, diarrhea, hematemesis, hematochezia, nausea, vomiting Genitourinary: ABSENT: dysuria, hematuria Musculoskeletal: ABSENT: joint swelling Integumentary: ABSENT: rash, wounds Neurological: ABSENT: abnormal gait, abnormal speech, confusion, dizziness, focal weakness, syncope Psychiatric: ABSENT: anxiety, depression, homidical ideation, suicidal ideation Endocrine: ABSENT: cold intolerance, heat intolerance, menstrual abnormalities, polydipsia, polyuria Hematologic/Lymphatic: ABSENT: easy bleeding, easy bruising, lymphadenopathy Physical Exam Vital Signs: Temp Pulse Resp BP Pulse Ox 97.5 F 86 16 92/60 L 100 08/25/18 17:06 08/25/18 17:06 08/25/18 17:06 08/25/18 17:06 08/25/18 17:06 Intake & Output 08/24/18 08/25/18 08/26/18 06:59 06:59 06:59 Weight 90.4 kg General appearance: PRESENT: no acute distress, well-developed, well-nourished Head exam: PRESENT: atraumatic, normocephalic Eye exam: PRESENT: conjunctiva pink, EOMI, PERRLA Ear exam: PRESENT: normal external ear exam Mouth exam: PRESENT: moist, tongue midline Neck exam: PRESENT: full ROM Respiratory exam: PRESENT: clear to auscultation franco Cardiovascular exam: PRESENT: RRR, +S1, +S2 Vascular exam: PRESENT: normal capillary refill GI/Abdominal exam: PRESENT: normal bowel sounds, soft Rectal exam: PRESENT: deferred Neurological exam: PRESENT: alert, awake, oriented to person, oriented to place, oriented to time, oriented to situation, CN II-XII grossly intact Psychiatric exam: PRESENT: appropriate affect, normal mood Skin exam: PRESENT: dry, intact, warm Results Laboratory Results: 08/25/18 17:00 08/25/18 17:00 08/25/18 08/25/18 17:00 17:00 WBC 5.8 RBC 4.15 Hgb 13.1 Hct 38.5 MCV 93 MCH 31.6 MCHC 34.1 RDW 13.0 Plt Count 309 Seg Neutrophils % 30.8 L Lymphocytes % 56.9 H Monocytes % 8.0 Eosinophils % 3.7 Basophils % 0.6 Absolute Neutrophils 1.8 Absolute Lymphocytes 3.3 Absolute Monocytes 0.5 Absolute Eosinophils 0.2 Absolute Basophils 0.0 Sodium 140.3 Potassium 3.1 L Chloride 99 Carbon Dioxide 31 H Anion Gap 10 BUN 22 H Creatinine 1.22 Est GFR ( Amer) 56 L Est GFR (Non-Af Amer) 46 L Glucose 98 Calcium 9.4 Total Bilirubin 0.3 AST 20 ALT 19 Alkaline Phosphatase 83 Total Protein 7.9 Albumin 4.5 08/25/18 08/25/18 08/25/18 17:00 17:00 17:00 Creatine Kinase 144 H CK-MB (CK-2) 0.94 Troponin I < 0.012 NT-Pro-B Natriuret Pep 47 Impressions: Chest X-Ray 08/25/18 00:00 IMPRESSION: NO ACUTE FINDINGS. Assessment & Plan - Diagnosis (1) Chest pain Qualifiers: Chest pain type: unspecified Qualified Code(s): R07.9 - Chest pain, unspecified Is this a current diagnosis for this admission?: Yes Plan: She has chest pain with abnormal EKG, she has multiple risk factors for ischemic heart disease
[2018-08-25] MEDS: POTASSIUM CHLORIDE 10 MEQ CAPSULE.ER PO SCH (20:05)
[2018-08-25] MEDS: MULTIVITAMINS W-IRON TABLET, CHEWABLE PO SCH (20:06)
[2018-08-25] MEDS: LOSARTAN POTASSIUM 50 MG TABLET PO SCH (20:16)
[2018-08-25] MEDS: HYDROCHLOROTHIAZIDE 25 MG TABLET PO SCH (20:17)
[2018-08-25] MEDS: TOPIRAMATE 100 MG TABLET PO SCH (21:39)
[2018-08-25] MEDS: ATORVASTATIN CALCIUM 10 MG TABLET PO SCH (21:39)
[2018-08-25] MEDS: LATANOPROST 0.005% OPH SOLN 2.5 ML OS SCH (21:40)
[2018-08-25] MEDS ORDERED: (PENDING PHARMACY ID) (Topiramate [Topamax] 200 MG) PO SCH (22:00)
[2018-08-25] MEDS ORDERED: (PENDING PHARMACY ID) (Travoprost [Travatan Z] 1 DROP) OS SCH (22:00)
[2018-08-25] MEDS: INSULIN GLARGINE,HUM.REC.ANLOG 1,000 UNIT/10 ML VIAL SUBCUT SCH (23:18)
--- NOTE | 2018-08-26 00:01 | EKG REPORT ---
SEVERITY:- BORDERLINE ECG - SINUS RHYTHM PROBABLE LEFT ATRIAL ABNORMALITY BORDERLINE T ABNORMALITIES, ANT-LAT LEADS : Confirmed by: Lore Stevenson MD 25-Aug-2018 23:59:41
[2018-08-26] MEDS ORDERED: DIPHENHYDRAMINE HCL 50 MG/ML VIAL IV PRN (00:12)
[2018-08-26] MEDS ORDERED: DEXTROSE 40% GEL 15 GM TUBE X 2 PO PRN (00:30)
[2018-08-26] MEDS ORDERED: GLUCAGON,HUMAN RECOMB 1 MG INJ IM PRN (00:30)
[2018-08-26] MEDS ORDERED: DEXTROSE 50%-WATER SYRINGE 12.5 GM/25 ML DOSE IV PRN (00:30)
[2018-08-26] MEDS ORDERED: DEXTROSE 50%-WATER SYRINGE 25 GM/50 ML DOSE IV PRN (00:30)
[2018-08-26] MEDS ORDERED: DEXTROSE 40% GEL 15 GM TUBE PO PRN (00:30)
[2018-08-26 02:09] LABS: TROPONIN I < 0.012 ng/mL
[2018-08-26 06:12] LABS: HEMATOCRIT 36.9 % (36.0-47.0); HEMOGLOBIN 12.6 g/dL (12.0-15.5); MEAN CORPUSCULAR HEMOGLOBIN 31.4 pg (27.0-33.4); MEAN CORPUSCULAR HGB CONC 34.2 g/dL (32.0-36.0); MEAN CORPUSCULAR VOLUME 92 fl (80-97); PLATELET COUNT 280 10^3/uL (150-450); RED BLOOD COUNT 4.02 10^6/uL (3.72-5.28); RED CELL DISTRIBUTION WIDTH 12.5 % (11.5-14.0); WHITE BLOOD COUNT 5.9 10^3/uL (4.0-10.5)
[2018-08-26 06:28] LABS: ANION GAP 8 (5-19); BLOOD UREA NITROGEN 27 mg/dL (7-20); CALCIUM 9.3 mg/dL (8.4-10.2); CARBON DIOXIDE 30 mmol/L (22-30); CHLORIDE 102 mmol/L (98-107); GLUCOSE 86 mg/dL (75-110); POTASSIUM 3.2 mmol/L (3.6-5.0); SODIUM 140.4 mmol/L (137-145)
[2018-08-26 06:44] LABS: ABSOLUTE LYMPHOCYTES# (MANUAL) 3.9 10^3/uL (0.5-4.7); ABSOLUTE MONOCYTES # (MANUAL) 0.5 10^3/uL (0.1-1.4); BASOPHILS % (MANUAL) 0 % (0-2); EOSINOPHILS % (MANUAL) 5 % (0-6); MONOCYTES % (MANUAL) 8 % (3-13); PLATELET COMMENT ADEQUATE; RBC MORPHOLOGY COMMENT NORMO-CYTIC/CHROMIC; SEGMENTED NEUTROPHILS % (MAN) 21 % (42-78); TOTAL CELLS COUNTED 100
[2018-08-26] MEDS: MULTIVITAMINS W-IRON TABLET, CHEWABLE PO SCH (09:37)
[2018-08-26] MEDS: POTASSIUM CHLORIDE 10 MEQ CAPSULE.ER PO SCH (09:38)
[2018-08-26] MEDS: HYDROCHLOROTHIAZIDE 25 MG TABLET PO SCH (09:41)
[2018-08-26] MEDS: CLOPIDOGREL BISULFATE 75 MG TABLET PO SCH (09:42)
[2018-08-26] MEDS: LOSARTAN POTASSIUM 50 MG TABLET PO SCH (09:43)
[2018-08-26 10:55] LABS: TROPONIN I < 0.012 ng/mL
[2018-08-26] MEDS ORDERED: DIPHENHYDRAMINE HCL 25 MG CAPSULE ONE (12:00)
[2018-08-26] MEDS ORDERED: ACETAMINOPHEN 325 MG TABLET ONE (12:14)
[2018-08-26] MEDS ORDERED: DIPHENHYDRAMINE HCL 25 MG CAPSULE PO PRN (12:17)
[2018-08-26] MEDS ORDERED: ACETAMINOPHEN 325 MG TABLET PO PRN (12:26)
[2018-08-26 12:49] LABS: AMORPHOUS SEDIMENT,URINE TRACE /HPF; APPEARANCE,URINE CLOUDY; BILIRUBIN,URINE NEGATIVE (NEGATIVE); COLOR,URINE YELLOW; GLUCOSE, URINE >=500 mg/dL (NEGATIVE); KETONES,URINE NEGATIVE (NEGATIVE); LEUKOCYTE ESTERASE,URINE NEGATIVE (NEGATIVE); NITRITE,URINE NEGATIVE (NEGATIVE); PROTEIN,URINE NEGATIVE (NEGATIVE); URINE SPECIFIC GRAVITY 1.013; UROBILINOGEN,URINE NEGATIVE mg/dL (<2.0)
[2018-08-26 20:19] LABS: URINE AMPHETAMINES SCREEN NEGATIVE; URINE BARBITURATES SCREEN NEGATIVE; URINE BENZODIAZEPINES SCREEN NEGATIVE; URINE COCAINE SCREEN NEGATIVE; URINE MARIJUANA (THC) SCREEN NEGATIVE; URINE METHADONE SCREEN NEGATIVE; URINE PHENCYCLIDINE SCREEN NEGATIVE
[2018-08-26] MEDS: LATANOPROST 0.005% OPH SOLN 2.5 ML OS SCH (21:27)
[2018-08-26] MEDS: ATORVASTATIN CALCIUM 10 MG TABLET PO SCH (21:28)
[2018-08-26] MEDS: TOPIRAMATE 100 MG TABLET PO SCH (21:28)
[2018-08-26] MEDS: INSULIN GLARGINE,HUM.REC.ANLOG 1,000 UNIT/10 ML VIAL SUBCUT SCH (21:31)
[2018-08-27 05:29] LABS: HEMOGLOBIN 12.2 g/dL (12.0-15.5); MEAN CORPUSCULAR HGB CONC 33.8 g/dL (32.0-36.0); MEAN CORPUSCULAR VOLUME 92 fl (80-97); PLATELET COUNT 286 10^3/uL (150-450); RED BLOOD COUNT 3.92 10^6/uL (3.72-5.28); RED CELL DISTRIBUTION WIDTH 12.7 % (11.5-14.0); WHITE BLOOD COUNT 6.6 10^3/uL (4.0-10.5)
[2018-08-27 05:40] LABS: ANION GAP 10 (5-19); BLOOD UREA NITROGEN 27 mg/dL (7-20); CALCIUM 9.1 mg/dL (8.4-10.2); CARBON DIOXIDE 28 mmol/L (22-30); CHLORIDE 102 mmol/L (98-107); GLUCOSE 75 mg/dL (75-110); POTASSIUM 3.4 mmol/L (3.6-5.0); SODIUM 139.9 mmol/L (137-145)
[2018-08-27 07:41] LABS: ABSOLUTE LYMPHOCYTES# (MANUAL) 4.6 10^3/uL (0.5-4.7); ABSOLUTE MONOCYTES # (MANUAL) 0.5 10^3/uL (0.1-1.4); BASOPHILS % (MANUAL) 1 % (0-2); EOSINOPHILS % (MANUAL) 3 % (0-6); LYMPHOCYTES % (MANUAL) 68 % (13-45); MONOCYTES % (MANUAL) 8 % (3-13); SEGMENTED NEUTROPHILS % (MAN) 19 % (42-78); TOTAL CELLS COUNTED 100
[2018-08-27 07:42] LABS: OVALOCYTES SLIGHT; PLATELET COMMENT ADEQUATE; POIKILOCYTOSIS SLIGHT
[2018-08-27 10:46] LABS: PATH REVIEW PATHOLOGIST REVIEWED
[2018-08-27 11:32] LABS: LYMPHOCYTES % (MANUAL) 66 % (13-45)
[2018-08-27] MEDS: POTASSIUM CHLORIDE 10 MEQ CAPSULE.ER PO SCH (11:45)
[2018-08-27] MEDS: MULTIVITAMINS W-IRON TABLET, CHEWABLE PO SCH (11:45)
[2018-08-27] MEDS: CLOPIDOGREL BISULFATE 75 MG TABLET PO SCH (11:47)
[2018-08-27] MEDS: LOSARTAN POTASSIUM 50 MG TABLET PO SCH (11:48)
[2018-08-27] MEDS: HYDROCHLOROTHIAZIDE 25 MG TABLET PO SCH (11:48)
[2018-08-27] MEDS ORDERED: REGADENOSON INJ 0.4 MG/5 ML DISP.SYRIN IV ONE (14:55)
[2018-08-27 19:39] VITALS: BP 94/57
--- NOTE | 2018-08-27 20:59 | PDOC DISCHARGE SUMMARY ---
General - Admit/Disc Date/PCP Admission Date/Primary Care Provider: 08/25/18 15:50 SUSHILA QUINTERO MD Discharge Date: 08/27/18 - Discharge Diagnosis (1) Chest pain Is this a current diagnosis for this admission?: Yes (2) Diabetes mellitus type 2 in obese Is this a current diagnosis for this admission?: Yes (3) Morbid (severe) obesity due to excess calories Is this a current diagnosis for this admission?: Yes - Additional Information Discharge Diet: As Tolerated Discharge Activity: Activity As Tolerated, Balance Activity w/Rest Home Medications: Pravastatin Sodium [Pravachol] 40 mg PO DAILY 11/13/11 Clopidogrel Bisulfate [Plavix 75 mg Tablet] 75 mg PO DAILY 11/15/11 Insulin Glargine,Hum.rec.anlog [Lantus Insulin 100 Unit/mL Insulin Pen] 25 unit SUBCUT DAILY 11/07/16 Losartan/Hydrochlorothiazide [Losartan-Hctz 100-25 mg Tab] 1 tab PO DAILY 11/07/16 Multivit with Iron,Minerals [Compete] 1 each PO DAILY 11/07/16 Diphenhydramine HCl [Benadryl] 75 mg PO ASDIR PRN 08/25/18 Doxepin HCl 75 mg PO QHS 08/25/18 Empagliflozin [Jardiance] 25 mg PO DAILY 08/25/18 Potassium Chloride [Klor-Con M20] 40 meq PO DAILY 08/25/18 Semaglutide [Ozempic] 0.25 mg SQ Q7D 08/25/18 Topiramate [Topamax] 200 mg PO QHS 08/25/18 Travoprost [Travatan Z] 1 drop OS QHS 08/25/18 Acetaminophen [Tylenol 325 mg Tablet] 650 mg PO Q6HP PRN tablet 08/27/18 History of Present Illness History of Present Illness: CELINA GAVIN is a 52 year old female,She came to the office today for evaluation of chest pain, The chest pain is substernal, it radiates to the left upper extremities, she has multiple risk factors for ischemic heart disease Hospital Course Hospital Course: Patient was admitted for evaluation and management of chest pain, she underwent pharmacologic Cardiolite stress test today, it was negative for any reversibility to suggest acute ischemia.Chest pain is unlikely to be due to pulmonary embolism, the d-dimer was normal, 3 sets of cardiac enzymes were negative for acute HI Physical Exam Vital Signs: Temp Pulse Resp BP Pulse Ox 97.6 F 92 18 94/57 L 100 08/27/18 19:37 08/27/18 19:37 08/27/18 19:37 08/27/18 19:37 08/27/18 19:37 Intake & Output 08/26/18 08/27/18 08/28/18 06:59 06:59 06:59 Intake Total 358 570 480 Output Total 1050 1900 Balance 358 480 -1420 Weight 91.7 kg 94.3 kg General appearance: PRESENT: no acute distress, well-developed, well-nourished Head exam: PRESENT: atraumatic, normocephalic Eye exam: PRESENT: conjunctiva pink, EOMI, PERRLA Ear exam: PRESENT: normal external ear exam Mouth exam: PRESENT: moist, tongue midline Neck exam: PRESENT: full ROM Respiratory exam: PRESENT: clear to auscultation franco Cardiovascular exam: PRESENT: RRR, +S1, +S2 Pulses: PRESENT: normal dorsalis pedis pul, +2 pedal pulses bilateral Vascular exam: PRESENT: normal capillary refill GI/Abdominal exam: PRESENT: normal bowel sounds, soft Rectal exam: PRESENT: deferred Neurological exam: PRESENT: alert, awake, oriented to person, oriented to place, oriented to time, oriented to situation, CN II-XII grossly intact Psychiatric exam: PRESENT: appropriate affect, normal mood Skin exam: PRESENT: dry, intact, warm Results Laboratory Results: 08/27/18 04:21 08/27/18 04:21 08/27/18 08/27/18 04:21 04:21 WBC 6.6 RBC 3.92 Hgb 12.2 Hct 36.0 MCV 92 MCH 31.0 MCHC 33.8 RDW 12.7 Plt Count 286 Seg Neutrophils % Not Reportable Lymphocytes % Not Reportable Monocytes % Not Reportable Eosinophils % Not Reportable Basophils % Not Reportable Absolute Neutrophils Not Reportable Absolute Lymphocytes Not Reportable Absolute Monocytes Not Reportable Absolute Eosinophils Not Reportable Absolute Basophils Not Reportable Sodium 139.9 Potassium 3.4 L Chloride 102 Carbon Dioxide 28 Anion Gap 10 BUN 27 H Creatinine 0.94 Est GFR ( Amer) > 60 Est GFR (Non-Af Amer) > 60 Glucose 75 Calcium 9.1 08/25/18 08/25/18 08/25/18 17:00 17:00 17:00 Creatine Kinase 144 H CK-MB (CK-2) 0.94 Troponin I < 0.012 NT-Pro-B Natriuret Pep 47 08/26/18 08/26/18 08/26/18 01:30 01:30 10:00 Creatine Kinase 137 H 165 H CK-MB (CK-2) 1.00 Troponin I < 0.012 NT-Pro-B Natriuret Pep 08/26/18 10:00 Creatine Kinase CK-MB (CK-2) 0.90 Troponin I < 0.012 NT-Pro-B Natriuret Pep Impressions: Chest X-Ray 08/25/18 00:00 IMPRESSION: NO ACUTE FINDINGS. Qualifiers - * PATIENT BEING DISCHARGED WITH ANY OF THE FOLLOWING DIAGNOSIS: No VTE patient discharged on overlapping Therapy?: No Reason(s) for not prescribing Overlap Therapy:: Not indicated Stroke Pt being discharged on Anti-thrombolytic therapy?: No Reason(s) for not prescribing Anti-thrombolytic therapy:: Not indicated Stroke Pt being discharged on Anti-coagulation therapy?: No Reason(s) for not prescribing Anti-coagulation therapy:: Not indicated Stroke Pt being discharged on Statins?: No Reason(s) for not prescribing Statins therapy:: Not indicated HI Pt being discharged on Aspirin therapy?: No Reason(s) for not prescribing Aspirin therapy:: Not indicated HI Pt being discharged on Statins?: No Reason(s) for not prescribing Statin therapy:: Not indicated HI Pt discharged ACEI/ARBS?: No Reason(s) for not prescribing ACEI/ARBS:: Not indicated Acute Heart Failure - Is this a Heart Failure Patient?: No e) For LVEF <35%, discharged on Aldosterone antagonist?: N/A (LVEF > or = 35%)
--- NOTE | 2018-08-28 21:49 | DRAGON STRESS TEST REPORT ---
Intravenous Lexiscan Cardiolite stress test using single photon emmision computerized tomography. Date of procedure: 08/27/2018. Ordering Provider: Dr. Graham. Patient's status: NCAT patient. Indication: Chest pain. Coronary risk factors: Age, diabetes mellitus, hypertension, dyslipidemia, and history of tobacco abuse disorder. Resting EKG: Sinus Rhythm. Within Normal Limits. Stress EKG: No changes of ischemia. The patient had no chest pain or discomfort, and there were no arrhythmias seen. Reason for termination: Protocol. Conclusions: Normal EKG and hemodynamic response to IV Lexiscan. Nuclear data: At rest the patient was given 14.02 millicuries of technetium 99m sestamibi injected intravenously. As per protocol rest gated SPECT images were obtained. Subsequently the patient was given intravenous Lexiscan at a dose of 0.4 mg in 5 mL intravenously, followed by flush with normal saline. Subsequently the stress dose of 42.5 millicuries of technetium 99m sestamibi was injected intravenously. As per protocol stress gated images were obtained. Nuclear interpretation: Review of images showed that all segments of the myocardium had normal perfusion at rest, and normal perfusion post stress with IV Lexiscan. All segments of the myocardium had normal motion, contraction, and thickening by gated study. T. I D. ratio was normal at 0.99. There is no transient ischemic dilatation of the left ventricle. Computer read rest, and stress left ventricular ejection fraction were 62 %, and Ext %, respectively. Conclusion: 1. There is no scintigraphic evidence of Lexiscan induced myocardial ischemia. 2. There is no scintigraphic evidence of myocardial infarction/scar. Recommendations: Aggressive risk factor modification, and treating the underlying co- morbidities. MTDD
[2018-08-30 11:48] LABS: PATH REVIEW PATHOLOGIST REVIEWED
== END 2018-08-27 21:00 | disposition home or self-care (01) ==
LOC: 3W 15:50 → INTOOBSV 15:50
PROVIDERS: ADMIT Internal Medicine; ATTEND Internal Medicine
DX: R07.2 Precordial pain (principal); E11.9 Type 2 diabetes mellitus without complications; E66.01 Morbid (severe) obesity due to excess calories; E78.5 Hyperlipidemia, unspecified; I10 Essential (primary) hypertension; F32.9 Major depressive disorder, single episode, unspecified; R94.31 Abnormal electrocardiogram [ECG] [EKG]; F17.200 Nicotine dependence, unspecified, uncomplicated; Z79.899 Other long term (current) drug therapy; Z79.4 Long term (current) use of insulin
CPT/HCPCS: 36415 ×3; 82553 ×2; 82962 ×3; 82550 ×2; 85025 ×3; 80076; 80048 ×2; 81001; 84484 ×2; 80307; 83036; 85379; 83880; 93017; 71046; 78452; 93005; 93010; G0378 ×3; G0379; A9500; J3490 ×13; J2785; J1815 ×2; Q9969

== ENCOUNTER → 2018-10-28 | Outpatient (CLI) | payer MEDICAID ==
--- NOTE | 2018-10-28 16:59 | RADIOLOGY REPORT (SQ) ---
EXAM DESCRIPTION: ANKLE BILATERAL AP/LAT COMPLETED DATE/TIME: 10/28/2018 3:53 pm REASON FOR STUDY: FALL (ON) (FROM) OTHER STAIRS AND STEPS, INITIAL ENCOUNTER M79.641 PAIN IN RIGHT HAND W10.8XXA FALL (ON) (FROM) OTHER STAIRS AND STEPS, INITIAL EN COMPARISON: None. NUMBER OF VIEWS: Two views. TECHNIQUE: AP and lateral radiographic images acquired of the right and left ankle. LIMITATIONS: None. FINDINGS: MINERALIZATION: Normal. BONES: No acute fracture or dislocation. Large calcaneal spurs. No worrisome bone lesions. JOINTS: No effusions. SOFT TISSUES: No soft tissue swelling. No foreign body. OTHER: No other significant finding. IMPRESSION: NO RADIOGRAPHIC EVIDENCE OF ACUTE INJURY OF THE RIGHT AND LEFT ANKLES. TECHNICAL DOCUMENTATION: JOB ID: [id number] [employer]- All Rights Reserved Reading location - IP/workstation name: [email or web address]
--- NOTE | 2018-10-28 17:01 | RADIOLOGY REPORT (SQ) ---
EXAM DESCRIPTION: HAND BILATERAL 3 VIEWS COMPLETED DATE/TIME: 10/28/2018 3:53 pm REASON FOR STUDY: FALL (ON) (FROM) OTHER STAIRS AND STEPS, INITIAL ENCOUNTER M79.641 PAIN IN RIGHT HAND W10.8XXA FALL (ON) (FROM) OTHER STAIRS AND STEPS, INITIAL EN COMPARISON: None. EXAM PARAMETERS: NUMBER OF VIEWS: Three views. TECHNIQUE: AP, lateral and oblique radiographic images acquired of the right and left hand. LIMITATIONS: None. FINDINGS: MINERALIZATION: Normal. BONES: No acute fracture or dislocation. Chronic deformity of the ulnar styloid on the right. No wo rrisome bone lesions. JOINTS: No effusions. SOFT TISSUES: No soft tissue swelling. No foreign body. OTHER: No other significant finding. IMPRESSION: NEGATIVE STUDY OF THE RIGHT AND LEFT HANDS. NO RADIOGRAPHIC EVIDENCE OF ACUTE INJURY. TECHNICAL DOCUMENTATION: JOB ID: [id number] [employer]- All Rights Reserved Reading location - IP/workstation name: [email or web address]
--- NOTE | 2018-10-28 17:02 | RADIOLOGY REPORT (SQ) ---
EXAM DESCRIPTION: LUMBAR SPINE 2 VIEWS COMPLETED DATE/TIME: 10/28/2018 3:53 pm REASON FOR STUDY: FALL (ON) (FROM) OTHER STAIRS AND STEPS, INITIAL ENCOUNTER M79.641 PAIN IN RIGHT HAND W10.8XXA FALL (ON) (FROM) OTHER STAIRS AND STEPS, INITIAL EN COMPARISON: 06/30/2012. NUMBER OF VIEWS: Two views. TECHNIQUE: AP and lateral radiographic images acquired of the lumbar spine. LIMITATIONS: None. FINDINGS: MINERALIZATION: Normal. SEGMENTATION: Normal. No transitional anatomy. ALIGNMENT: Normal. VERTEBRAE: Maintained height. No fracture or worrisome bone lesion. DISCS: Preserved height. No significant osteophytes or end plate irregularity. POSTERIOR ELEMENTS: Pedicles and facets are intact. No pars defect or posterior arch defects. HARDWARE: None in the spine. PARASPINAL SOFT TISSUES: Normal. PELVIS: Intact as visualized. No fractures or worrisome bone lesions. SI joints intact. OTHER: No other significant finding. IMPRESSION: NORMAL 2 VIEW LUMBAR SPINE. TECHNICAL DOCUMENTATION: JOB ID: [id number] [employer]- All Rights Reserved Reading location - IP/workstation name: [email or web address]
== END ==
LOC: OD 15:14
PROVIDERS: ATTEND Internal Medicine
DX: M79.641 Pain in right hand (principal); W10.8XXA Fall (on) (from) other stairs and steps, initial encounter
CPT/HCPCS: 72100

== ENCOUNTER → 2018-12-02 | Outpatient (CLI) | payer MEDICAID ==
--- NOTE | 2018-12-02 13:24 | WOMENS IMAGING REPORT ---
EXAM DESCRIPTION: 3D SCREENING MAMMO BILAT COMPLETED DATE/TIME: 12/02/2018 10:22 am REASON FOR STUDY: ROUTINE BILATERAL SCREENING;Z12.31 Z12.31 ENCNTR SCREEN MAMMOGRAM FOR MALIGNANT N EOPLASM OF VARGAS COMPARISON: 08/26/2016 and 12/25/2015. EXAM PARAMETERS: Views: Standard craniocaudal and mediolateral oblique views of each breast recorded using digital acquisition and breast tomosynthesis. Read with the assistance of CAD. .[facility] - [employer] Version 9.2 LIMITATIONS: None. FINDINGS: No suspicious masses, suspicious calcifications or architectural distortion. No areas of c oncern. IMPRESSION: NEGATIVE MAMMOGRAM. BIRADS 1. BREAST DENSITY: b. There are scattered areas of fibroglandular density. BIRAD: ASSESSMENT: 1 NEGATIVE RECOMMENDATION: ROUTINE SCREENING COMMENT: The patient has been notified of the results by letter per MQSA requirements. Additional no tification policies are in place for contacting patient with suspicious or incomplete findings. Quality ID #[id number]: The [employer] recommends an annual screening mammogram for women aged 40 years or over. This facility utilizes a reminder system to ensure that all patients receive reminder letters, and/or direct phone calls for appointments. This includes reminders for routine scr eening mammograms, diagnostic mammograms, or other Breast Imaging Interventions when appropriate. Th is patient will be placed in the appropriate reminder system. TECHNICAL DOCUMENTATION: FINDING NUMBER: (1) ASSESSMENT: (1) JOB ID: [id number] [employer]- All Rights Reserved Reading location - IP/workstation name: [email or web address]
== END ==
LOC: WI 10:18
PROVIDERS: ATTEND Internal Medicine
DX: Z12.31 Encounter for screening mammogram for malignant neoplasm of breast (principal)
CPT/HCPCS: 77063; 77067

== ENCOUNTER → 2019-12-28 | Outpatient (CLI) | payer MEDICAID ==
--- NOTE | 2019-12-28 13:31 | WOMENS IMAGING REPORT ---
EXAM DESCRIPTION: 3D SCREENING MAMMO BILAT IMAGES COMPLETED DATE/TIME: 12/28/2019 9:17 am REASON FOR STUDY: ROUTINE SCREENING MAMMOGRAM Z12.31 Z12.31 ENCNTR SCREEN MAMMOGRAM FOR MALIGNANT N EOPLASM OF VARGAS COMPARISON: Priors back to 2016 EXAM PARAMETERS: Views: Standard craniocaudal and mediolateral oblique views of each breast recorded using digital acquisition and breast tomosynthesis. Read with the assistance of CAD. .[facility] - [employer] Version 9.2 LIMITATIONS: None. FINDINGS: No suspicious masses, suspicious calcifications or architectural distortion. No areas of c oncern. IMPRESSION: NEGATIVE MAMMOGRAM. BIRADS 1. BREAST DENSITY: b. There are scattered areas of fibroglandular density. BIRAD: ASSESSMENT: 1 NEGATIVE RECOMMENDATION: ROUTINE SCREENING COMMENT: The patient has been notified of the results by letter per MQSA requirements. Additional no tification policies are in place for contacting patient with suspicious or incomplete findings. Quality ID #[id number]: The [employer] recommends an annual screening mammogram for women aged 40 years or over. This facility utilizes a reminder system to ensure that all patients receive reminder letters, and/or direct phone calls for appointments. This includes reminders for routine scr eening mammograms, diagnostic mammograms, or other Breast Imaging Interventions when appropriate. Th is patient will be placed in the appropriate reminder system. TECHNICAL DOCUMENTATION: FINDING NUMBER: (1) ASSESSMENT: (1) JOB ID: [id number] 2010 [employer]- All Rights Reserved Reading location - IP/workstation name: [email or web address]
--- OUTSIDE RECORDS SUMMARY | 2019-12-29 18:13 | XMS REPORT ---
:1965 Author Organization [facility] Address [facility] [place] [address] [place] [address] Care Team Providers Name Role Phone Herminia Graham Primary Care Physician Unavailable Trevino Attending Clinician Unavailable Allergies, Adverse Reactions, Alerts Allergy Allergy Status Severity Reaction(s) Onset Inactive Treating C omments Name Type Date Date Clinician Pioglitazon Pioglitazo Active edema 2020-0 e HCl ne HCl 7-07 00:00: 00 Aspirin Aspirin Active anaphylaxis 2020-0 7-07 00:00: 00 Jeremy Jeremy Active angioedema 2020-0 inhibitirs inhibitirs 7-07 00:00: 00 Pioglitazon Pioglitazo Inactive edema 2020-0 e HCl ne HCl 4-03 00:00: 00 Aspirin Aspirin Inactive anaphylaxis 2020-0 4-03 00:00: 00 Jeremy Jeremy Inactive angioedema 2020-0 inhibitirs inhibitirs 4-03 00:00: 00 Pioglitazon Pioglitazo Inactive edema 2020-0 e HCl ne HCl 3-10 00:00: 00 Aspirin Aspirin Inactive anaphylaxis 2020-0 3-10 00:00: 00 Jeremy Jeremy Inactive angioedema 2020-0 inhibitirs inhibitirs 3-10 00:00: 00 Pioglitazon Pioglitazo Inactive edema 2020-0 e HCl ne HCl 3-04 00:00: 00 Aspirin Aspirin Inactive anaphylaxis 2020-0 3-04 00:00: 00 Jeremy Jeremy Inactive angioedema 2020-0 inhibitirs inhibitirs 3-04 00:00: 00 Pioglitazon Pioglitazo Inactive edema 2019-1 e HCl ne HCl 2-04 00:00: 00 Aspirin Aspirin Inactive anaphylaxis 2019-1 2-04 00:00: 00 Jeremy Jeremy Inactive angioedema 2019-1 inhibitirs inhibitirs 2-04 00:00: 00 Pioglitazon Pioglitazo Inactive edema 2019 e HCl ne HCl 0-21 00:00: 00 Aspirin Aspirin Inactive anaphylaxis 2019- 0-21 00:00: 00 Jeremy Jeremy Inactive angioedema 2019- inhibitirs inhibitirs 0-21 00:00: 00 Pioglitazon Pioglitazo Inactive edema 2018- e HCl ne HCl 0-04 00:00: 00 Aspirin Aspirin Inactive anaphylaxis 2019- 0-04 00:00: 00 Jeremy Jeremy Inactive angioedema 2019- inhibitirs inhibitirs 0-04 00:00: 00 Pioglitazon Pioglitazo Inactive edema 2019-0 e HCl ne HCl 9-12 00:00: 00 Aspirin Aspirin Inactive anaphylaxis 2019-0 9-12 00:00: 00 Ejremy Jeremy Inactive angioedema 2019-0 inhibitirs inhibitirs 9-12 00:00: 00 Pioglitazon Pioglitazo Inactive edema 2019-0 e HCl ne HCl 7-22 00:00: 00 Aspirin Aspirin Inactive anaphylaxis 2019-0 7-22 00:00: 00 Jeremy Jeremy Inactive angioedema 2019-0 inhibitirs inhibitirs 7-22 00:00: 00 Pioglitazon Pioglitazo Inactive edema 2019-0 e HCl ne HCl 6-24 00:00: 00 Aspirin Aspirin Inactive anaphylaxis 2019-0 6-24 00:00: 00 Jeremy Jeremy Inactive angioedema 2019-0 inhibitirs inhibitirs 6-24 00:00: 00 Pioglitazon Pioglitazo Inactive edema 2018-0 e HCl ne HCl 9-10 00:00: 00 Aspirin Aspirin Inactive anaphylaxis 2018-0 9-10 00:00: 00 Jeremy Jeremy Inactive angioedema 2018-0 inhibitirs inhibitirs 9-10 00:00: 00 Medications Ordered Filled Start Stop Current Ordering Indication Dosage Frequency Signature Comments Components Medication Medication Date Date Medication? Clinician (SIG) Name Name Valtrex 1 2020-0 2020- No QD 1 tablet GM 7-07 07-17 Orally 00:00: 00:00 Once a day 00 :00 Insulin 2020-0 No QD as Syringe-Nee 5-18 directed dle U-100 00:00: in vitro 31G X 00 once a day 15/64" 0.3 ML Syringe 25G 2020-0 No as X 1-1/2" 3 5-13 directed ML 00:00: in vitro 00 Up to three times a day Pen [place] 2020-0 No as 32G X 5 MM 4-15 directed 00:00: Invitro up 00 to three times a day Acyclovir No 1 tablet 800 MG 3-10 Orally 00:00: five times 00 a day Clindamycin 2019- No TID 2 capsules HCl 300 MG 3-10 03-20 Orally 00:00: 00:00 every 8 00 :00 hrs Percocet 2019- No QID 1 tablet 7.5-325 MG 3-10 03-15 as needed 00:00: 00:00 Orally 00 :00 every 6 hrs Lamisil 250 2018-02- No QD 1 tablet MG 2-03 Orally 00:00: 00:00 Once a day 00 :00 Doxycycline 2018-02- No BID 1 tablet Hyclate 100 2 12-14 Orally MG 00:00: 00:00 twice a 00 :00 day Monistat 7 2018-02- No QD one 2 12- applicatio 00:00: 00:00 n 00 :00 vaginally once a day Pen [place] 2018-02 No as 32G X 5 MM 0-29 directed 00:00: in vitro 00 up to three times a day Montelukast 2018-02 Yes QD 1 tablet Sodium 10 0-21 Orally MG 00:00: Once a day 00 Chlorphenir 2018-02- No QID 1 tablet amine 0-21 12-20 as needed Maleate 4 00:00: 00:00 Orally MG 00 :00 every 6 hrs Flagyl 500 2018-02- No TID 1 tablet MG 0-14 11-13 Orally 00:00: 00:00 Three 00 :00 times a day Valtrex 1 2018-02- No QD 1 tablet GM 0-04 10-14 Orally 00:00: 00:00 Once a day 00 :00 Percocet 2018- No QID 1 tablet 10-325 MG - 09-17 as needed 00:00: 00:00 Orally 00 :00 every 6 hrs Ozempic No 0.25mg 0.25 or 0.5 6-24 subcutaneo MG/DOSE 00:00: usly 00 weekly Ozempic Yes 0.25mg 0.25 or 0.5 6-24 subcutaneo MG/DOSE 00:00: usly 00 weekly Doxycycline 2018- No BID 1 capsule Hyclate 100 6-24 07-04 Orally MG 00:00: 00:00 twice a 00 :00 day Levemir 100 No QD 20 units UNIT/ML 5-03 Subcutaneo 00:00: us daily 00 Doxepin HCl No QD 1 capsule 75 MG 4-16 at bedtime 00:00: Orally 00 Once a day Oxycodone-A 2017- No QID 1 tablet cetaminophe 9-10 09-15 as needed n 10-325 MG 00:00: 00:00 Orally 00 :00 every 6 hrs Jardiance No QD 1 tablet 25 MG 4-18 Orally 00:00: Once a day 00 Accu-Chek No as Kina Plus 4-18 directed w/Device 00:00: IN VITRO 00 THREE TIMES A DAY/E11.42 Cyclobenzap No TID 1 tablet rine HCl 10 as needed MG Orally Three times a day Unifine No USE Pentips 32G DIRECTED X 4 MM WITH LANTUS Bydureon 2 No 2 mg once MG a week Subcutaneo us 90 days 28 Lantus No QD 25 units SoloStar Subcutaneo 100 UNIT/ML us daily Oxycodone No QID 1 tablet HCl 5 MG as needed Orally every 6 hrs Furosemide Yes QD 1 tablet 40 mg orally Once a day Metformin Yes BID 1 tablet HCl 1000 mg Orally twice a day Clopidogrel Yes QD 1 tablet Bisulfate Orally 75 mg daily Pravastatin Yes QD 1 tablet Sodium 40 Orally MG Once a day Topiramate Yes QD 1 tablet 200 mg at bedtime Orally daily Potassium No 2 capsules Chloride ER with food 20 MEQ Once a day Orally 30 day(s) 30 30 Accu-Chek No as Kina - directed up to 3 times a day In Vitro 30 days Patanol 0.1 No BID 1 drop % into affected eye Ophthalmic Twice a day Losartan Yes QD 1 tablet Potassium-H Orally CTZ 100-25 Once a day MG Potassium Yes QD 2 capsules Chloride ER with food 20 MEQ Orally Once a day Accu-Chek No TEST BLOOD Softclix SUGAR 4 Lancets - TIMES A DAY DIRECTED Jardiance Yes QD 1 tablet 25 MG Orally Once a day Potassium No 2 capsules Chloride ER with food 20 MEQ Once a day Orally 30 day(s) 30 30 30 30 30 Bimatoprost No QD 1 drop 0.01 % into affected eye in the evening Ophthalmic Once a day Travatan Z Yes QD 1 drop 0.004 % into left eye at bedtime Ophthalmic Once a day Lumigan No QD 1 drop 0.01 % into affected eye in the evening Ophthalmic Once a day Doxepin HCl Yes QD 1 capsule 75 MG at bedtime Orally Once a day Levemir Yes BID 25 units FlexTouch Subcutaneo 100 UNIT/ML us twice a day Problems Condition Condition Condition Status Onset Resolution Last Treatin g Comments Name Details Category Date Date Treatment Clinician Date Body mass Body mass Problem Active index 30.00 index (BMI) 6-06 to 34.99 31.0-31.9, 00:00: adult 00 Body mass Body mass Problem Active index 30.00 index (BMI) 4-25 to 34.99 32.0-32.9, 00:00: adult 00 Generalized Generalized Problem Active abdominal abdominal 3-04 pain pain 00:00: 00 Discharge Nipple Problem Active from nipple discharge 3-04 00:00: 00 BMI 25-29 - Body mass Problem Active overweight index (BMI) 2-12 29.0-29.9, 00:00: adult 00 Transient Transient Problem Active ischemic cerebral 2-12 attack ischemic 00:00: attack, 00 unspecified Chronic Chronic Problem Active 2018-02 maxillary maxillary 0-21 sinusitis sinusitis 00:00: 00 Screening Encounter Problem Active 2018-02 for for 0-04 malignant screening 00:00: neoplasm of for 00 cervix malignant neoplasm of cervix 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 vulvovagini 0-04 tis tis 00:00: 00 Gastro-esop Gastro-esop Problem Active hageal hageal 9-25 reflux reflux 00:00: disease disease 00 with with esophagitis esophagitis Body mass Body mass Problem Active index 30+ - index (BMI) 9-25 obesity 30.0-30.9, 00:00: adult 00 Type II Diabetes Problem Active diabetes mellitus 7-22 mellitus without 00:00: without mention of 00 complicatio complicatio n n, type II or unspecified type, not stated as uncontrolle d Amenorrhea Amenorrhea, Problem Active unspecified 2-07 00:00: 00 Screening Encounter Problem Active for for 2-02 malignant screening 00:00: neoplasm of for 00 colon malignant neoplasm of colon Pneumonia Pneumonia, Problem Active unspecified 2-02 organism 00:00: 00 Morbid Morbid Problem Active obesity (severe) 6-24 obesity due 00:00: to excess 00 calories Chronic Chronic Problem Active pain pain 6-18 syndrome syndrome 00:00: 00 Bilateral Primary Problem Active primary open-angle 3-21 open angle glaucoma, 00:00: glaucoma bilateral, 00 mild stage Localized Localized Problem Active swelling, swelling, 9-08 mass and mass and 00:00: lump, lower lump, right 00 limb lower limb Pain in Pain in Problem Active right knee right knee 9-08 00:00: 00 Tobacco Nicotine Problem Active user dependence, 7-17 cigarettes, 00:00: uncomplicat 00 ed Breast lump Unspecified Problem Active lump in 6-19 breast 00:00: 00 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, 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 00:00: 00 Obese class Body mass Problem Active II index (BMI) 1-03 35.0-35.9, 00:00: adult 00 Polyneuropa Type 1 Problem Active 2015-02 thy due to diabetes 0-20 diabetes mellitus 00:00: mellitus with 00 type I diabetic polyneuropa thy Acute sinusitis,a Problem Active 2015-02 sinusitis cute 0-20 00:00: 00 Candidal Candidiasis Problem Active 2015-02 vulvovagini of vulva 0-20 tis and vagina 00:00: 00 Essential Essential Problem Active hypertensio (primary) 8-07 n hypertensio 00:00: n 00 Gynecologic Encounter Problem Active al for 8-07 examination gynecologic 00:00: abnormal al 00 examination (general) (routine) with abnormal findings Polyneuropa Type 2 Problem Active thy due to diabetes 7-15 type 2 mellitus 00:00: diabetes with 00 mellitus diabetic polyneuropa thy Screening Encounter Problem Active for for 7-15 malignant screening 00:00: neoplasm of mammogram 00 breast for malignant neoplasm of breast Tobacco Nondependen Problem Active 2013-02 user t tobacco 04-15 use 00:00: disorder 00 Obesity obesity Problem Active 2013-02 00:00: 00 Anxiety Anxiety Problem Active 2013-02 state state, 04-15 unspecified 00:00: 00 Transient Transient Problem Active 2013-02 ischemic ischemic 04-15 attack attack 00:00: 00 Diabetic Polyneuropa Problem Active 2013-02 polyneuropa thy in 03-28 thy diabetes 00:00: 00 Edema Edema Problem Active 2013-02 00:00: 00 Neurologic Diabetes Problem Active disorder with associated neurologica with type l II diabetes manifestati mellitus ons, type II or unspecified type, uncontrolle d Asthma Asthma, Problem Active without unspecified status , asthmaticus unspecified status Hypertensio Hypertensio Problem Active n n Procedures Procedure Date / Time Performed Performing Clinician Devic e BEHAV CHNG SMOKING 3-10 MIN 2019-08-23 00:00:00 OFFICE/OUTPATIENT VISIT EST 2017-03-07 11:30:00 Results Test Description Test Time Test Comments Text Results Atomic Results Result Comments HEMOGLOBIN A1c (HGB AIC) 2019-08-23 00:00:00 Test Item Value Reference Range Comments [id number](HGBAIC) (test code = 4548-4) 7.9 4.0-5 .6 COMPREHENSIVE [id number] 00:00:00 Test Item Value Reference Range Comments SODIUM (test code = SODIUM) 139 136-145 POTASSIUM (test code = POTASSIUM) 3.8 3.5-5.1 CHLORIDE (test code = CHLORIDE) 103 98-107 CARBONDIOXIDE (test code = CARBONDIOXIDE) 25.0 17-32 GLUCOSE (test code = GLUCOSE) 203 70-99 BUN (test code = BUN) 15 7-25 CREATININESERUM (test code = CREATININESERUM) 1.04 0. 5-1.2 BUN/CREATININERATIO (test code = BUN/CREATININERATIO) 14 8-28 BILIRUBIN,Total (test code = BILIRUBIN,Total) 0.3 0. 2-1.0 CALCIUM (test code = CALCIUM) 9.5 8.6-10.5 PROTEINTOTAL (test code = PROTEINTOTAL) 7.3 6.6-8.2 ALBUMIN (test code = ALBUMIN) 4.5 3.5-5.7 ALK.PHOSPHATASE (test code = ALK.PHOSPHATASE) 114 34 -104 ALT(SGPT) (test code = ALT(SGPT)) 19 7-52 AST(SGOT) (test code = AST(SGOT)) 12 11-39 GLOBULIN (test code = GLOBULIN) 2.8 1.8-4.0 A/GRATIO (test code = A/GRATIO) 1.6 0.8-2.7 GLOMERULARFILT.RATE (test code = GLOMERULARFILT.RATE) 59 >60 MICROALBUMIN/CREATINE [id number] 00:00:00 Test Item Value Reference Range Comments MICROALB/CREATRATIO (test code = 81531-1) 143 0-29 CREATININE,URINE (test code = CREATININE,URINE) 40 20-300 CBC + AUTOMATED [id number] 00:00:00 Test Item Value Reference Range Comments WBC (test code = WBC) 5.5 4.2-11.8 RBC (test code = RBC) 4.03 3.8-5.0 HEMOGLOBIN (test code = HEMOGLOBIN) 13.1 11.3-14.9 HEMATOCRIT (test code = HEMATOCRIT) 40 34-44.3 MCV (test code = MCV) 99 80.8-97.4 MCH (test code = MCH) 32.5 26.6-33.0 MCHC (test code = MCHC) 32.9 32-34.9 RDW (test code = RDW) 13.5 11.8-15.5 PLATELET (test code = PLATELET) 316 147-365 MPV (test code = MPV) 8.30 6.00-12.00 SEGMENTED% (test code = SEGMENTED%) 41.2 43.7-73.5 SEGMENTED# (test code = SEGMENTED#) 2.3 1.9-7.5 LYMPHOCYTES% (test code = LYMPHOCYTES%) 45.60 17.9-45. 1 LYMPHOCYTES# (test code = LYMPHOCYTES#) 2.5 1-4 MONOCYTES% (test code = MONOCYTES%) 6.8 3.8-10 MONOCYTES# (test code = MONOCYTES#) 0.4 0.2-0.9 EOSINOPHILS% (test code = EOSINOPHILS%) 5.40 0.0-6.1 EOSINOPHILS# (test code = EOSINOPHILS#) 0.30 0.0-0.5 BASOPHILS% (test code = BASOPHILS%) 1.00 0.0-0.9 BASOPHILS# (test code = BASOPHILS#) 0.10 0.0-0.1 LIPID [id number] 00:00:00 Test Item Value Reference Range Comments CHOLESTEROL (test code = CHOLESTEROL) 221 <200 TRIGLYCERIDES (test code = TRIGLYCERIDES) 255 10-149 HDLCHOLESTEROL (test code = HDLCHOLESTEROL) 35 40-1 99 LDL/HDLRATIO (test code = LDL/HDLRATIO) 3.86 0.00-4.9 7 LDLCHOLESTEROL,calc. (test code = 135 <100 LDLCHOLESTEROL,calc.) VLDLCHOLESTEROL,calc. (test code = 51 5-40 VLDLCHOLESTEROL,calc.) CHOLESTEROL/HDLRATIO (test code = 6.31 2.00-5.00 CHOLESTEROL/HDLRATIO) NON-HDLCHOLESTEROL (test code = NON-HDLCHOLESTEROL) 186 0-159 URIC [id number] 00:00:00 Test Item Value Reference Range Comments URICACID (test code = URICACID) 3.0 2.3-6.6 [id number] 00:00:00 Test Item Value Reference Range Comments COLOR (test code = COLOR) YELLOW YELLOW CLARITY (test code = CLARITY) CLOUDY CLEAR SPECIFICGRAVITY (test code = SPECIFICGRAVITY) 1.021 1. 005-1.025 pH (test code = pH) 5.0 5.0-8.5 URINEPROTEIN (test code = URINEPROTEIN) NEGATIVE NEGATIVE URINEGLUCOSE (test code = URINEGLUCOSE) >=500 NEGATIVE URINEKETONE (test code = URINEKETONE) NEGATIVE NEGATIVE URINEBILIRUBIN (test code = URINEBILIRUBIN) NEGATIVE NEGA TIVE URINEBLOOD (test code = URINEBLOOD) NEGATIVE NEGATIVE URINENITRITE (test code = URINENITRITE) NEGATIVE NEGATIVE UROBILINOGEN (test code = UROBILINOGEN) 0.2 0.2-1.0 LEUKOCYTE (test code = LEUKOCYTE) NEGATIVE NEGATIVE *PleaseNote: (test code = *PleaseNote:) TSH + FREE [id number] 00:00:00 Test Item Value Reference Range Comments [id number] (test code = [id number]) 1.911 0.340-4.410 FREET4 (test code = FREET4) 0.96 0.61-1.12 LAB [id number] 00:00:00 Test Item Value Reference Range Comments PDF (test code = PDF) LAB HIV COMBO AG/AB 4TH [id number] 00:00:00 Test Item Value Reference Range Comments HIVCOMBOAG/AO5XSBMY (test code = NONREACTIVE NONREACTIVE HIVCOMBOAG/QX6EUVON) LAB [id number] 00:00:00 Test Item Value Reference Range Comments PDF (test code = PDF) LAB ,SERUM (QUAL)2018-12-06 00:00:00 Test Item Value Reference Range Comments HCGQUALITATIVE,SERUM (test code = NEGATIVE NEGATIVE HCGQUALITATIVE,SERUM) CBC + AUTOMATED [id number] 00:00:00 Test Item Value Reference Range Comments WBC (test code = WBC) 5.6 4.2-11.8 RBC (test code = RBC) 4.16 3.8-5.0 HEMOGLOBIN (test code = HEMOGLOBIN) 13.1 11.3-14.9 HEMATOCRIT (test code = HEMATOCRIT) 40 34-44.3 MCV (test code = MCV) 96 80.8-97.4 MCH (test code = MCH) 31.5 26.6-33.0 MCHC (test code = MCHC) 32.8 32-34.9 RDW (test code = RDW) 14.7 11.8-15.5 PLATELET (test code = PLATELET) 296 147-365 MPV (test code = MPV) 8.08 6.00-12.00 SEGMENTED% (test code = SEGMENTED%) 44.6 43.7-73.5 SEGMENTED# (test code = SEGMENTED#) 2.5 1.9-7.5 LYMPHOCYTES% (test code = LYMPHOCYTES%) 48.96 17.9-45. 1 LYMPHOCYTES# (test code = LYMPHOCYTES#) 2.7 1-4 MONOCYTES% (test code = MONOCYTES%) 3.8 3.8-10 MONOCYTES# (test code = MONOCYTES#) 0.2 0.2-0.9 EOSINOPHILS% (test code = EOSINOPHILS%) 2.52 0.0-6.1 EOSINOPHILS# (test code = EOSINOPHILS#) 0.14 0.0-0.5 BASOPHILS% (test code = BASOPHILS%) 0.16 0.0-0.9 BASOPHILS# (test code = BASOPHILS#) 0.01 0.0-0.1 COMPREHENSIVE [id number] 00:00:00 Test Item Value Reference Range Comments SODIUM (test code = SODIUM) 145 136-145 POTASSIUM (test code = POTASSIUM) 3.7 3.5-5.1 CHLORIDE (test code = CHLORIDE) 107 98-107 CARBONDIOXIDE (test code = CARBONDIOXIDE) 27.0 17-32 GLUCOSE (test code = GLUCOSE) 151 70-99 BUN (test code = BUN) 13 7-25 CREATININESERUM (test code = CREATININESERUM) 0.80 0. 5-1.2 BUN/CREATININERATIO (test code = BUN/CREATININERATIO) 16 8-28 BILIRUBIN,Total (test code = BILIRUBIN,Total) 0.5 0. 2-1.0 CALCIUM (test code = CALCIUM) 8.3 8.6-10.5 PROTEINTOTAL (test code = PROTEINTOTAL) 7.4 6.6-8.2 ALBUMIN (test code = ALBUMIN) 4.3 3.5-5.7 ALK.PHOSPHATASE (test code = ALK.PHOSPHATASE) 84 34 -104 ALT(SGPT) (test code = ALT(SGPT)) 16 7-52 AST(SGOT) (test code = AST(SGOT)) 11 11-39 GLOBULIN (test code = GLOBULIN) 3.1 1.8-4.0 A/GRATIO (test code = A/GRATIO) 1.4 0.8-2.7 GLOMERULARFILT.RATE (test code = GLOMERULARFILT.RATE) 80 >60 HEMOGLOBIN A1c (HGB AIC)2018-11-19 00:00:00 Test Item Value Reference Range Comments [id number](HGBAIC) (test code = 4548-4) 7.0 4.0-5 .6 LIPID [id number] 00:00:00 Test Item Value Reference Range Comments CHOLESTEROL (test code = CHOLESTEROL) 166 <200 TRIGLYCERIDES (test code = TRIGLYCERIDES) 146 10-149 HDLCHOLESTEROL (test code = HDLCHOLESTEROL) 42 40-1 99 LDL/HDLRATIO (test code = LDL/HDLRATIO) 2.26 0.00-4.9 7 LDLCHOLESTEROL,calc. (test code = 95 <100 LDLCHOLESTEROL,calc.) VLDLCHOLESTEROL,calc. (test code = 29 5-40 VLDLCHOLESTEROL,calc.) CHOLESTEROL/HDLRATIO (test code = 3.95 2.00-5.00 CHOLESTEROL/HDLRATIO) NON-HDLCHOLESTEROL (test code = NON-HDLCHOLESTEROL) 124 0-159 URIC [id number] 00:00:00 Test Item Value Reference Range Comments URICACID (test code = URICACID) 3.0 2.3-6.6 [id number] 00:00:00 Test Item Value Reference Range Comments COLOR (test code = COLOR) YELLOW YELLOW CLARITY (test code = CLARITY) TURBID CLEAR SPECIFICGRAVITY (test code = SPECIFICGRAVITY) 1.041 1. 005-1.025 pH (test code = pH) 5.0 5.0-8.5 URINEPROTEIN (test code = URINEPROTEIN) NEGATIVE NEGATIVE URINEGLUCOSE (test code = URINEGLUCOSE) >=500 NEGATIVE URINEKETONE (test code = URINEKETONE) NEGATIVE NEGATIVE URINEBILIRUBIN (test code = URINEBILIRUBIN) NEGATIVE NEGA TIVE URINEBLOOD (test code = URINEBLOOD) NEGATIVE NEGATIVE URINENITRITE (test code = URINENITRITE) NEGATIVE NEGATIVE UROBILINOGEN (test code = UROBILINOGEN) 0.2 0.2-1.0 LEUKOCYTE (test code = LEUKOCYTE) NEGATIVE NEGATIVE *PleaseNote: (test code = *PleaseNote:) HERPES SIMPLEX VIRUS,[id number] 00:00:00 Test Item Value Reference Range Comments HERPESSIMPLEXVIRUS,PCR (test code = Negative NEGATIVE HERPESSIMPLEXVIRUS,PCR) SOURCE (test code = SOURCE) . MICROALBUMIN/CREATINE [id number] 00:00:00 Test Item Value Reference Range Comments MICROALB/CREATRATIO (test code = 05192-7) 122 0-29 CREATININE,URINE (test code = CREATININE,URINE) 186 20-300 PAP W/HPV+GC/[id number] 00:00:00 Test Item Value Reference Range Comments Comment: (test code = 78231-1) See Components TSH + FREE [id number] 00:00:00 Test Item Value Reference Range Comments [id number] (test code = [id number]) 1.036 0.340-4.410 FREET4 (test code = FREET4) 0.89 0.61-1.12 LAB [id number] 00:00:00 Test Item Value Reference Range Comments PDF (test code = PDF) LAB CBC + AUTOMATED [id number] 00:00:00 Test Item Value Reference Range Comments WBC (test code = WBC) 5.2 4.2-11.8 RBC (test code = RBC) 3.84 3.8-5.0 HEMOGLOBIN (test code = HEMOGLOBIN) 12.2 11.3-14.9 HEMATOCRIT (test code = HEMATOCRIT) 37 34-44.3 MCV (test code = MCV) 97 80.8-97.4 MCH (test code = MCH) 31.8 26.6-33.0 MCHC (test code = MCHC) 32.8 32-34.9 RDW (test code = RDW) 13.8 11.8-15.5 PLATELET (test code = PLATELET) 312 147-365 MPV (test code = MPV) 7.08 6.00-12.00 SEGMENTED% (test code = SEGMENTED%) 48.3 43.7-73.5 SEGMENTED# (test code = SEGMENTED#) 2.5 1.9-7.5 LYMPHOCYTES% (test code = LYMPHOCYTES%) 40.40 17.9-45. 1 LYMPHOCYTES# (test code = LYMPHOCYTES#) 2.1 1-4 MONOCYTES% (test code = MONOCYTES%) 6.3 3.8-10 MONOCYTES# (test code = MONOCYTES#) 0.3 0.2-0.9 EOSINOPHILS% (test code = EOSINOPHILS%) 4.73 0.0-6.1 EOSINOPHILS# (test code = EOSINOPHILS#) 0.25 0.0-0.5 BASOPHILS% (test code = BASOPHILS%) 0.30 0.0-0.9 BASOPHILS# (test code = BASOPHILS#) 0.02 0.0-0.1 COMPREHENSIVE [id number] 00:00:00 Test Item Value Reference Range Comments SODIUM (test code = SODIUM) 140 136-145 POTASSIUM (test code = POTASSIUM) 3.4 3.5-5.1 CHLORIDE (test code = CHLORIDE) 103 98-107 CARBONDIOXIDE (test code = CARBONDIOXIDE) 24.0 17-32 GLUCOSE (test code = GLUCOSE) 85 70-99 BUN (test code = BUN) 22 7-25 CREATININESERUM (test code = CREATININESERUM) 0.98 0. 5-1.2 BUN/CREATININERATIO (test code = BUN/CREATININERATIO) 22 8-28 BILIRUBIN,Total (test code = BILIRUBIN,Total) 0.6 0. 2-1.0 CALCIUM (test code = CALCIUM) 9.8 8.6-10.5 PROTEINTOTAL (test code = PROTEINTOTAL) 7.5 6.6-8.2 ALBUMIN (test code = ALBUMIN) 4.4 3.5-5.7 ALK.PHOSPHATASE (test code = ALK.PHOSPHATASE) 77 34 -104 ALT(SGPT) (test code = ALT(SGPT)) 14 7-52 AST(SGOT) (test code = AST(SGOT)) 14 11-39 GLOBULIN (test code = GLOBULIN) 3.1 1.8-4.0 A/GRATIO (test code = A/GRATIO) 1.4 0.8-2.7 GLOMERULARFILT.RATE (test code = GLOMERULARFILT.RATE) 64 >60 HEMOGLOBIN A1c (HGB AIC)2018-09-06 00:00:00 Test Item Value Reference Range Comments [id number](HGBAIC) (test code = 4548-4) 7.3 4.0-5 .6 LIPID [id number] 00:00:00 Test Item Value Reference Range Comments CHOLESTEROL (test code = CHOLESTEROL) 198 <200 TRIGLYCERIDES (test code = TRIGLYCERIDES) 216 10-149 HDLCHOLESTEROL (test code = HDLCHOLESTEROL) 39 40-1 99 LDL/HDLRATIO (test code = LDL/HDLRATIO) 2.97 0.00-4.9 7 LDLCHOLESTEROL,calc. (test code = 116 <100 LDLCHOLESTEROL,calc.) VLDLCHOLESTEROL,calc. (test code = 43 5-40 VLDLCHOLESTEROL,calc.) CHOLESTEROL/HDLRATIO (test code = 5.08 2.00-5.00 CHOLESTEROL/HDLRATIO) NON-HDLCHOLESTEROL (test code = NON-HDLCHOLESTEROL) 159 0-159 URIC [id number] 00:00:00 Test Item Value Reference Range Comments URICACID (test code = URICACID) 2.8 2.3-6.6 [id number] 00:00:00 Test Item Value Reference Range Comments COLOR (test code = COLOR) YELLOW YELLOW CLARITY (test code = CLARITY) HAZY CLEAR SPECIFICGRAVITY (test code = SPECIFICGRAVITY) 1.021 1. 005-1.025 pH (test code = pH) 6.0 5.0-8.5 URINEPROTEIN (test code = URINEPROTEIN) NEGATIVE NEGATIVE URINEGLUCOSE (test code = URINEGLUCOSE) >=500 NEGATIVE URINEKETONE (test code = URINEKETONE) NEGATIVE NEGATIVE URINEBILIRUBIN (test code = URINEBILIRUBIN) NEGATIVE NEGA TIVE URINEBLOOD (test code = URINEBLOOD) NEGATIVE NEGATIVE URINENITRITE (test code = URINENITRITE) NEGATIVE NEGATIVE UROBILINOGEN (test code = UROBILINOGEN) 0.2 0.2-1.0 LEUKOCYTE (test code = LEUKOCYTE) NEGATIVE NEGATIVE *PleaseNote: (test code = *PleaseNote:) MICROALBUMIN/CREATINE [id number] 00:00:00 Test Item Value Reference Range Comments MICROALBUMIN,URINE (test code = MICROALBUMIN,URINE) 15.8 0.0-29.0 CREATININE,URINE (test code = CREATININE,URINE) 77 20-300 MICROALB/CREATRATIO (test code = MICROALB/CREATRATIO) 21 0-29 TSH + FREE [id number] 00:00:00 Test Item Value Reference Range Comments [id number] (test code = [id number]) 2.206 0.340-4.410 FREET4 (test code = FREET4) 0.72 0.61-1.12 LAB [id number] 00:00:00 Test Item Value Reference Range Comments PDF (test code = PDF) LAB CBC + AUTOMATED [id number] 00:00:00 Test Item Value Reference Range Comments WBC (test code = WBC) 5.5 4.2-11.8 RBC (test code = RBC) 4.18 3.8-5.0 HEMOGLOBIN (test code = HEMOGLOBIN) 13.1 11.3-14.9 HEMATOCRIT (test code = HEMATOCRIT) 40 34-44.3 MCV (test code = MCV) 95 80.8-97.4 MCH (test code = MCH) 31.3 26.6-33.0 MCHC (test code = MCHC) 33.0 32-34.9 RDW (test code = RDW) 14.6 11.8-15.5 PLATELET (test code = PLATELET) 308 147-365 MPV (test code = MPV) 7.69 6.00-12.00 SEGMENTED% (test code = SEGMENTED%) 37.1 43.7-73.5 SEGMENTED# (test code = SEGMENTED#) 2.0 1.9-7.5 LYMPHOCYTES% (test code = LYMPHOCYTES%) 55.39 17.9-45. 1 LYMPHOCYTES# (test code = LYMPHOCYTES#) 3.0 1-4 MONOCYTES% (test code = MONOCYTES%) 5.0 3.8-10 MONOCYTES# (test code = MONOCYTES#) 0.3 0.2-0.9 EOSINOPHILS% (test code = EOSINOPHILS%) 2.16 0.0-6.1 EOSINOPHILS# (test code = EOSINOPHILS#) 0.12 0.0-0.5 BASOPHILS% (test code = BASOPHILS%) 0.33 0.0-0.9 BASOPHILS# (test code = BASOPHILS#) 0.02 0.0-0.1 [facility] [id number] 00:00:00 Test Item Value Reference Range Comments SODIUM (test code = SODIUM) 141 136-145 POTASSIUM (test code = POTASSIUM) 3.7 3.5-5.1 CHLORIDE (test code = CHLORIDE) 100 98-107 CARBONDIOXIDE (test code = CARBONDIOXIDE) 28.0 17-32 GLUCOSE (test code = GLUCOSE) 135 70-99 BUN (test code = BUN) 17 7-25 CREATININESERUM (test code = CREATININESERUM) 0.84 0. 5-1.2 BUN/CREATININERATIO (test code = BUN/CREATININERATIO) 20 8-28 BILIRUBIN,Total (test code = BILIRUBIN,Total) 0.8 0. 2-1.0 CALCIUM (test code = CALCIUM) 9.9 8.6-10.5 PROTEINTOTAL (test code = PROTEINTOTAL) 7.6 6.6-8.2 ALBUMIN (test code = ALBUMIN) 4.5 3.5-5.7 ALK.PHOSPHATASE (test code = ALK.PHOSPHATASE) 88 34 -104 ALT(SGPT) (test code = ALT(SGPT)) 10 7-52 AST(SGOT) (test code = AST(SGOT)) 12 11-39 GLOBULIN (test code = GLOBULIN) 3.1 1.8-4.0 A/GRATIO (test code = A/GRATIO) 1.5 0.8-2.7 GLOMERULARFILT.RATE (test code = GLOMERULARFILT.RATE) 76 >60 FREE [id number] 00:00:00 Test Item Value Reference Range Comments FREET4 (test code = FREET4) 0.88 0.61-1.12 HEMOGLOBIN A1c (HGB AIC)2017-10-26 00:00:00 Test Item Value Reference Range Comments [id number](HGBAIC) (test code = 4548-4) 8.0 4.0-5 .6 LIPID [id number] 00:00:00 Test Item Value Reference Range Comments CHOLESTEROL (test code = CHOLESTEROL) 178 <200 TRIGLYCERIDES (test code = TRIGLYCERIDES) 159 10-149 HDLCHOLESTEROL (test code = HDLCHOLESTEROL) 36 40-1 99 LDL/HDLRATIO (test code = LDL/HDLRATIO) 3.06 0.00-4.9 7 LDLCHOLESTEROL,calc. (test code = 110 <100 LDLCHOLESTEROL,calc.) VLDLCHOLESTEROL,calc. (test code = 32 5-40 VLDLCHOLESTEROL,calc.) CHOLESTEROL/HDLRATIO (test code = 4.94 2.00-5.00 CHOLESTEROL/HDLRATIO) NON-HDLCHOLESTEROL (test code = NON-HDLCHOLESTEROL) 142 0-159 ,SERUM (QUAL)2017-10-26 00:00:00 Test Item Value Reference Range Comments HCGQUALITATIVE,SERUM (test code = NEGATIVE NEGATIVE HCGQUALITATIVE,SERUM) TSH 3RD [id number] 00:00:00 Test Item Value Reference Range Comments [id number] (test code = [id number]) 1.099 0.340-4.410 PDF (test code = PDF) LAB URIC [id number] 00:00:00 Test Item Value Reference Range Comments URICACID (test code = URICACID) 3.7 2.3-6.6 [id number] 00:00:00 Test Item Value Reference Range Comments COLOR (test code = COLOR) YELLOW YELLOW CLARITY (test code = CLARITY) CLOUDY CLEAR SPECIFICGRAVITY (test code = SPECIFICGRAVITY) 1.030 1. 005-1.025 pH (test code = pH) 6.0 5.0-8.5 URINEPROTEIN (test code = URINEPROTEIN) 30 MG/DL NEGATIVE URINEGLUCOSE (test code = URINEGLUCOSE) >=500 NEGATIVE URINEKETONE (test code = URINEKETONE) NEGATIVE NEGATIVE URINEBILIRUBIN (test code = URINEBILIRUBIN) NEGATIVE NEGA TIVE URINEBLOOD (test code = URINEBLOOD) NEGATIVE NEGATIVE URINENITRITE (test code = URINENITRITE) NEGATIVE NEGATIVE UROBILINOGEN (test code = UROBILINOGEN) 0.2 0.2-1.0 LEUKOCYTE (test code = LEUKOCYTE) NEGATIVE NEGATIVE MICROALBUMIN/CREATINE [id number] 00:00:00 Test Item Value Reference Range Comments MICROALBUMIN,URINE (test code = MICROALBUMIN,URINE) 119.3 0.0-29.0 CREATININE,URINE (test code = CREATININE,URINE) 171 20-300 MICROALB/CREATRATIO (test code = MICROALB/CREATRATIO) 70 0-29 [facility]\\[id number] 11:30:00 Test Item Value Reference Range Comments CHLAM PCR (test code = CHLAMPCR) NOT DETECTED NOT DETECT SHEILA PCR (test code = GONPCR) NOT DETECTED NOT DETECT Rapid Strep\\S\\2016-12-12 19:30:00 Test Item Value Reference Range Comments Rapid Strep (test code = RAPIDSTREP) negative N/A Rapid Strep\\S\\2016-03-25 18:15:00 Test Item Value Reference Range Comments Rapid Strep (test code = RAPIDSTREP) negative N/A Rapid Strep\\S\\2016-03-08 16:10:00 Test Item Value Reference Range Comments Rapid Strep (test code = RAPIDSTREP) Negative N/A Assessments Condition Name Status Diagnosis Date Treating Clinici an - Chronic maxillary sinusitis J32.0 Active Ojebuoboh, [place] - 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 [facility]oboh, [place] polyneuropathy E11.42 - Herpesviral gingivostomatitis and Active [facility]ebuoboh, [place] pharyngotonsillitis B00.2 - Nicotine dependence, cigarettes, Active [facility]ebuoboh, [place] uncomplicated F17.210 - Essential (primary) hypertension I10 Active Ojebuoboh, [place] - 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 O[facility]uoboh, [place] polyneuropathy E11.42 - Body mass index (BMI) 31.0-31.9, adult Active [facility]ebuoboh, [place] Z68.31 - Essential (primary) hypertension I10 Active Ojebuoboh, [place] - Gastro-esophageal reflux disease with Active Ojebuoboh, [place] esophagitis K21.0 - Zoster without complications B02.9 Active Ojebuoboh, [place] - 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 [facility]ob[facility], [place] polyneuropathy E11.42 - Essential (primary) hypertension I10 Active Ojebuoboh, [place] - Nipple discharge N64.52 Active Ojebuo boh, Ibikunle - Generalized abdominal pain R10.84 Active Ojebuoboh, [place] - Body mass index (BMI) 32.0-32.9, adult Active Ojebuoboh, [place] Z68.32 - 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 Ojebuoboh, [place] polyneuropathy E11.42 - Essential (primary) hypertension I10 Active Ojebuoboh, [place] - Body mass index (BMI) 29.0-29.9, adult Active Ojebuoboh, [place] Z68.29 - Primary open-angle glaucoma, bilateral, Active Ojebuoboh, [place]un[place] mild stage H40.1131 - Encounter for screening for human Active Ojebuoboh, [place] immunodeficiency virus [HIV] Z11.4 - Tinea unguium B35.1 Active Ojebuoboh, [place] - Dermatitis, unspecified L30.9 Active [facility]oh, [place] - Pruritus, unspecified L29.9 Active Oj ebuoboh, [place] - Chronic maxillary sinusitis J32.0 Active [facility]ebuoboh, [place] - Amenorrhea, unspecified N91.2 Active [facility]ebuoboh, [place] - 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 O[facility]ebuoboh, [place] polyneuropathy E11.42 - Encounter for screening mammogram for Active Ojebuoboh, [place] malignant neoplasm of breast Z12.31 - Encounter for screening for malignant Active Ojebuoboh, [place] neoplasm of cervix Z12.4 - Herpesviral vulvovaginitis A60.04 Active Ojebuoboh, [place] - Pain in right hand M79.641 Active Oje buoboh, [place] - Fall (on) (from) other stairs and steps, Active Ojebuoboh, [place] initial encounter W10.8XXA - Type 2 diabetes mellitus without Active Ojebuoboh, [place] complications E11.9 - Essential (primary) hypertension I10 Active Ojebuoboh, [place] - Body mass index (BMI) 30.0-30.9, adult Active Ojebuoboh, [place] Z68.30 - Gastro-esophageal reflux disease with Active Ojebuoboh, [place] esophagitis K21.0 - 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 Ojebuoboh, [place] polyneuropathy E11.42 - 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 Ojebuoboh, [place] polyneuropathy E11.42 - Encounter for screening for malignant Active Ojebuoboh, [place] neoplasm of cervix Z12.4 - Pruritus, unspecified L29.9 Active Oj ebuoboh, [place] - Pruritus vulvae L29.2 Active Ojebuobo h, [place] - Unspecified abdominal pain R10.9 Active Ojebuoboh, [place] - 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 Ojebuoboh, [place] polyneuropathy E11.42 - Essential (primary) hypertension I10 Active Ojebuoboh, [place] - Amenorrhea, unspecified N91.2 Active Ojebuoboh, [place] - Essential (primary) hypertension I10 Active Ojebuoboh, [place] - 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 Ojebuoboh, [place] polyneuropathy E11.42 - Pneumonia, unspecified organism J18.9 Active Ojebuoboh, [place] - Encounter for screening mammogram for Active Ojebuoboh, [place] malignant neoplasm of breast Z12.31 - Encounter for screening for malignant Active Ojebuoboh, [place] neoplasm of colon Z12.11 - 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 Ojebuoboh, [place] polyneuropathy E11.42 - Chronic pain syndrome G89.4 Active Oj ebuoboh, [place] - Essential (primary) hypertension I10 Active Ojebuoboh, [place] - Nicotine dependence, cigarettes, Active Ojebuoboh, [place] uncomplicated F17.210 - 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 Ojebuoboh, [place] polyneuropathy E11.42 - Chronic pain syndrome G89.4 Active Oj ebuoboh, [place] - Essential (primary) hypertension I10 Active Ojebuoboh, [place] - Morbid (severe) obesity due to excess Active Ojebuoboh, [place] calories E66.01 - 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 Ojebuoboh, [place] polyneuropathy E11.42 - Essential (primary) hypertension I10 Active Ojebuoboh, [place] - Morbid (severe) obesity due to excess Active Ojebuoboh, [place] calories E66.01 - 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 Ojebuoboh, [place] polyneuropathy E11.42 - Essential (primary) hypertension I10 Active Ojebuoboh, [place] Oth cond assoc w female genital organs and Active menstrual cycle Other pruritus Active Other specified noninflammatory disorders Active of vagina Body mass index (BMI) 31.0-31.9, adult Active - Edema, unspecified R60.9 Active Ojebu oboh, [place] - 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 Ojebuoboh, [place] polyneuropathy E11.42 - Acute maxillary sinusitis, unspecified Active Ojebuoboh, [place] J01.00 - Radiculopathy, lumbar region M54.16 Active Ojebuoboh, [place] - Edema, unspecified R60.9 Active Ojebu oboh, [place] - Edema, unspecified R60.9 Active Ojebu oboh, [place] - 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 Ojebuoboh, [place] polyneuropathy E11.42 - Essential (primary) hypertension I10 Active Ojebuoboh, [place] - Localized swelling, mass and lump, right Active Ojebuoboh, [place] lower limb R22.41 - Pain in right knee M25.561 Active Oje buoboh, [place] - Cellulitis of left upper limb L03.114 Active Ojebuoboh, [place] - Unspecified hemorrhoids K64.9 Active Ojebuoboh, [place] - Nicotine dependence, cigarettes, Active Ojebuoboh, [place] uncomplicated F17.210 - 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 Ojebuoboh, [place] polyneuropathy E11.42 - Essential (primary) hypertension I10 Active Ojebuoboh, [place] - 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 Ojebuoboh, [place] polyneuropathy E11.42 - Unspecified lump in breast N63 Active Ojebuoboh, [place] - 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 Ojebuoboh, [place] polyneuropathy E11.42 - Cellulitis of abdominal wall L03.311 Active Ojebuoboh, [place] - Essential (primary) hypertension I10 Active Ojebuoboh, [place] - Body mass index (BMI) 35.0-35.9, adult Active Ojebuoboh, [place] Z68.35 - 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 Ojebuoboh, [place] polyneuropathy E11.42 - Acute sinusitis, unspecified J01.90 Active Ojebuoboh, [place] - Candidiasis of vulva and vagina B37.3 Active Ojebuoboh, [place] - Type 1 diabetes mellitus with diabetic Active Ojebuoboh, [place] polyneuropathy E10.42 - Chest pain, unspecified R07.9 Active Ojebuoboh, [place] - 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 Ojebuoboh, [place] polyneuropathy E11.42 - Essential (primary) hypertension I10 Active Ojebuoboh, [place] - Encounter for gynecological examination Active Ojebuoboh, [place] (general) (routine) with abnormal findings Z01.411 - Urinary tract infection, site not Active Ojebuoboh, [place] specified N39.0 - Candidiasis of vulva and vagina B37.3 Active Ojebuoboh, [place] - 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 Ojebuoboh, [place] polyneuropathy E11.42 - Encounter for screening mammogram for Active Ojebuoboh, [place] malignant neoplasm of breast Z12.31 - Hypertension 401.9 Active Ojebuoboh, [place] - Diabetes with neurological Active Oje buoboh, [place] manifestations, type II or unspecified type, uncontrolled 250.62 - Other screening mammogram V76.12 Active Ojebuoboh, [place] - Hypertension 401.9 Active Ojebuoboh, [place] - Polyneuropathy in diabetes 357.2 Active Ojebuoboh, [place] - Diabetes with neurological Active Oje buoboh, [place] manifestations, type II or unspecified type, uncontrolled 250.62 - tonsillitis,acute 463 Active Ojebuobo h, [place] - Hypertension 401.9 Active Ojebuoboh, [place] - Transient ischemic attack 435.9 Active Ojebuoboh, [place] - Diabetes with neurological Active Oje buoboh, [place] manifestations, type II or unspecified type, uncontrolled 250.62 - Diabetes with neurological Active Oje buoboh, [place] manifestations, type II or unspecified type, uncontrolled 250.62 - Hypertension 401.9 Active Ojebuoboh, [place] - Diabetes with neurological Active Oje buoboh, [place] manifestations, type II or unspecified type, uncontrolled 250.62 - Edema 782.3 Active Ojebuoboh, Ibiku nle - Polyneuropathy in diabetes 357.2 Active Ojebuoboh, [place] - Transient ischemic attack 435.9 Active Ojebuoboh, [place] - Pain in joint, upper arm 719.42 Active Ojebuoboh, [place] - Hypertension 401.9 Active Ojebuoboh, [place] - Diabetes with neurological Active Oje buoboh, [place] manifestations, type II or unspecified type, uncontrolled 250.62 - Diabetes with neurological Active Oje buoboh, [place] manifestations, type II or unspecified type, uncontrolled 250.62 - Hypertension 401.9 Active Ojebuoboh, [place] - Pleurisy without mention of effusion or Active Ojebuoboh, [place] current tuberculosis 511.0 - chest pain 786.50 Active Ojebuoboh, I bikunle - Diabetes with neurological Active Oje buoboh, [place] manifestations, type II or unspecified type, uncontrolled 250.62 - Hypertension 401.9 Active Ojebuoboh, [place] - Diabetes with neurological Active Oje buoboh, [place] manifestations, type II or unspecified type, uncontrolled 250.62 - Diabetes with neurological Active Oje buoboh, [place] manifestations, type II or unspecified type, uncontrolled 250.62 - Edema 782.3 Active Ojebuoboh, Ib[place] nle - Diabetes with neurological Active Oje buoboh, [place] manifestations, type II or unspecified type, uncontrolled 250.62 - Diabetes with neurological Active Oje buoboh, [place] manifestations, type II or unspecified type, uncontrolled 250.62 - Diabetes with neurological Active Oje buoboh, [place] manifestations, type II or unspecified type, uncontrolled 250.62 - Diabetes with neurological Active Oje buoboh, [place] manifestations, type II or unspecified type, uncontrolled 250.62 - Hypertension 401.9 Active Ojebuoboh, [place] - Transient ischemic attack 435.9 Active Ojebuoboh, [place] - Diabetes with neurological Active Oje buoboh, [place] manifestations, type II or unspecified type, uncontrolled 250.62 - Hypertension 401.9 Active Ojebuoboh, [place] - Diabetes with neurological Active Oje buoboh, [place] manifestations, type II or unspecified type, uncontrolled 250.62 - Hypertension 401.9 Active O[facility]ebuoboh, [place] - Diabetes with neurological Active Oje buoboh, [place] manifestations, type II or unspecified type, uncontrolled 250.62 - Asthma, unspecified, unspecified status Active Ojebuoboh, [place]le 493.90 - Hypertension 401.9 Active Ojebuoboh, [place] - sinusitis,acute 461.9 Active O[facility]ebuobo h, [place] - Diabetes mellitus without mention of Active Ojebuoboh, [place] complication, type II or unspecified type, not stated as uncontrolled 250.00 - neck pain 723.1 Active Ojebuoboh, Ibi felicia - Diabetes mellitus without mention of Active Ojebuoboh, [place] complication, type II or unspecified type, not stated as uncontrolled 250.00 - asthma ,bronchial ,intrinsic 493.00 Active Ojebuoboh, [place] - Diabetes mellitus without mention of Active Ojebuoboh, [place] complication, type II or unspecified type, not stated as uncontrolled 250.00 - Dermatophytosis of foot 110.4 Active Ojebuoboh, [place] - sinusitis,acute 461.9 Active O[facility]ebuobo h, [place] - Diabetes mellitus without mention of Active Ojebuoboh, [place] complication, type II or unspecified type, not stated as uncontrolled 250.00 - Asthma, unspecified, unspecified status Active Ojebuoboh, [place] 493.90 - Diabetes with neurological Active Oje buoboh, [place] manifestations, type II or unspecified type, uncontrolled 250.62 - sinusitis,acute 461.9 Active [facility]ebuobo h, [place] - Diabetes with neurological Active Oje buoboh, [place] manifestations, type II or unspecified type, uncontrolled 250.62 - Hypertension 401.9 Active Ojebuoboh, [place] - Diabetes with neurological Active Oje buoboh, [place] manifestations, type II or unspecified type, not stated as uncontrolled 250.60 - Morbid obesity 278.01 Active Ojebuobo h, [place] - hyperlipidemia 272.4 Active Herminia Graham Encounters Start End Encounter Admission Attending Care Care Encounter Date/Time Date/Time Type Type Clinicians Facility Department ID 2019-11-22 2019-11-22 [facility] [place] [id number] 00:00:00 00:00:00 PA 2019-09-21 2019-09-21 [facility] [place] [id number] 00:00:00 00:00:00 PA 2019-09-05 2019-09-05 [facility] [id number] 00:00:00 00:00:00 PA 2019-08-23 2019-08-23 [facility] [place] [id number] 00:00:00 00:00:00 PA 2019-08-03 2019-08-03 [facility] [id number] 00:00:00 00:00:00 PA 2019-07-04 2019-07-04 [facility] [id number] 00:00:00 00:00:00 PA 2019-07-01 2019-07-01 [facility] [id number] 00:00:00 00:00:00 PA 2019-06-29 2019-06-29 [facility] [id number] 00:00:00 00:00:00 PA 2019-06-01 2019-06-01 [facility] [id number] 00:00:00 00:00:00 PA 2019-05-20 2019-05-20 [facility] [id number] 00:00:00 00:00:00 PA 2019-04-26 2019-04-26 [facility] [id number] 00:00:00 00:00:00 PA 2019-04-20 2019-04-20 [facility] [id number] 00:00:00 00:00:00 PA 2019-02-18 2019-02-18 [facility] [id number] 00:00:00 00:00:00 PA 2019-01-28 2019-01-28 [facility] [id number] 00:00:00 00:00:00 PA 2019-01-20 2019-01-20 [facility] [id number] 00:00:00 00:00:00 PA 2019-01-19 2019-01-19 [facility] [id number] 00:00:00 00:00:00 PA 2019-01-19 2019-01-19 [facility] [id number] 00:00:00 00:00:00 PA 2018-12-14 2018-12-14 [facility] [id number] 00:00:00 00:00:00 PA 2018-12-06 2018-12-06 [facility] [id number] 00:00:00 00:00:00 PA 2018-11-29 2018-11-29 [facility] [id number] 00:00:00 00:00:00 PA 2018-11-29 2018-11-29 [facility] [id number] 00:00:00 00:00:00 PA 2018-11-29 2018-11-29 [facility] [id number] 00:00:00 00:00:00 PA 2018-11-19 2018-11-19 [facility] [id number] 00:00:00 00:00:00 PA 2018-10-28 2018-10-28 [facility] [id number] 00:00:00 00:00:00 PA 2018-09-06 2018-09-06 [facility] [id number] 00:00:00 00:00:00 PA 2018-08-31 2018-08-31 [facility] [place] [id number] 00:00:00 00:00:00 PA 2018-08-25 2018-08-25 [facility] [id number] 00:00:00 00:00:00 PA 2018-08-09 2018-08-09 [facility] [id number] 00:00:00 00:00:00 PA 2018-06-17 2018-06-17 [facility] [id number] 00:00:00 00:00:00 PA 2018-06-01 2018-06-01 [facility] [id number] 00:00:00 00:00:00 PA 2018-03-30 2018-03-30 [facility] [id number] 00:00:00 00:00:00 PA 2018-03-25 2018-03-25 [facility] [id number] 00:00:00 00:00:00 PA 2018-01-25 2018-01-25 [facility] [id number] 00:00:00 00:00:00 PA 2017-10-26 2017-10-26 [facility] [id number] 00:00:00 00:00:00 PA 2017-08-03 2017-08-03 [facility] [id number] 00:00:00 00:00:00 PA 2017-06-03 2017-06-03 [facility] [id number] 00:00:00 00:00:00 PA 2017-06-03 2017-06-03 [facility] [id number] 00:00:00 00:00:00 PA 2017-05-06 2017-05-06 [facility] [id number] 00:00:00 00:00:00 PA 2017-04-23 2017-04-23 [facility] [id number] 00:00:00 00:00:00 PA 2017-03-07 2017-03-07 Out[facility], [facility] [id number] 11:30:00 11:30:00 [facility] [id number] [facility] 2017-01-07 2017-01-07 [facility] [id number] 00:00:00 00:00:00 PA 2016-12-26 2016-12-26 [facility] [id number] 00:00:00 00:00:00 PA 2016-12-25 2016-12-25 [facility] [id number] 00:00:00 00:00:00 PA 2016-12-11 2016-12-11 [facility] [id number] 00:00:00 00:00:00 PA 2016-11-12 2016-11-12 [facility] [id number] 00:00:00 00:00:00 PA 2016-11-11 2016-11-11 [facility] [id number] 00:00:00 00:00:00 PA 2016-11-07 2016-11-07 [facility] [id number] 00:00:00 00:00:00 PA 2016-11-05 2016-11-05 [facility] [id number] 00:00:00 00:00:00 PA 2016-10-24 2016-10-24 [facility] [id number] 00:00:00 00:00:00 PA 2016-09-24 2016-09-24 [facility] [id number] 00:00:00 00:00:00 PA 2016-09-01 2016-09-01 [facility] [id number] 00:00:00 00:00:00 PA 2016-08-26 2016-08-26 [facility] [id number] 00:00:00 00:00:00 PA 2016-08-05 2016-08-05 [facility] [id number] 00:00:00 00:00:00 PA 2016-08-04 2016-08-04 [facility] [id number] 00:00:00 00:00:00 PA 2016-07-23 2016-07-23 [facility] [id number] 00:00:00 00:00:00 PA 2015-12-21 2015-12-21 [facility] [id number] 00:00:00 00:00:00 PA 2015-12-21 2015-12-21 [facility] [id number] 00:00:00 00:00:00 PA 2015-12-06 2015-12-06 [facility] [id number] 00:00:00 00:00:00 PA 2015-11-06 2015-11-06 [facility] [id number] 00:00:00 00:00:00 PA 2015-10-26 2015-10-26 [facility] [id number] 00:00:00 00:00:00 PA 2015-09-20 2015-09-20 [facility] [id number] 00:00:00 00:00:00 PA 2015 2015 [facility] [id number] 00:00:00 00:00:00 PA 2015-09-13 2015-09-13 [facility] [id number] 00:00:00 00:00:00 PA 2015-09-10 2015-09-10 [facility] [id number] 00:00:00 00:00:00 PA 2015-08-31 2015-08-31 [facility] [id number] 00:00:00 00:00:00 PA 2015-07-10 2015-07-10 [facility] [id number] 00:00:00 00:00:00 PA 2015-05-01 2015-05-01 [facility] [id number] 00:00:00 00:00:00 PA 2014-08-08 2014-08-08 [facility] [id number] 00:00:00 00:00:00 PA 2014-06-27 2014-06-27 [facility] [id number] 00:00:00 00:00:00 PA 2014-06-08 2014-06-08 [facility] [id number] 00:00:00 00:00:00 PA 2014-04-14 2014-04-14 [facility] [id number] 00:00:00 00:00:00 PA 2014-04-06 2014-04-06 [facility] [id number] 00:00:00 00:00:00 PA 2014-03-09 2014-03-09 [facility] [id number] 00:00:00 00:00:00 PA 2014-01-25 2014-01-25 [facility] [id number] 00:00:00 00:00:00 PA 2014-01-24 2014-01-24 [facility] [id number] 00:00:00 00:00:00 PA 2013-08-12 2013-08-12 [facility] [id number] 00:00:00 00:00:00 PA 2013-06-14 2013-06-14 [facility] [id number] 00:00:00 00:00:00 PA 2013-06-14 2013-06-14 [facility] [id number] 00:00:00 00:00:00 PA 2013-06-13 2013-06-13 [facility] [id number] 00:00:00 00:00:00 PA 2013-06-01 2013-06-01 [facility] [id number] 00:00:00 00:00:00 PA 2013-05-30 2013-05-30 [facility] [id number] 00:00:00 00:00:00 PA 2013-04-14 2013-04-14 [facility] [id number] 00:00:00 00:00:00 PA 2013-04-13 2013-04-13 [facility] [id number] 00:00:00 00:00:00 PA 2013-03-17 2013-03-17 [facility] [id number] 00:00:00 00:00:00 PA 2013-02-01 2013-02-01 [facility] [id number] 00:00:00 00:00:00 PA 2013-01-28 2013-01-28 [facility] [id number] 00:00:00 00:00:00 PA 2013-01-27 2013-01-27 [facility] [id number] 00:00:00 00:00:00 PA 2013-01-27 2013-01-27 [facility] [id number] 00:00:00 00:00:00 PA 2012-10-28 2012-10-28 [facility] [id number] 00:00:00 00:00:00 PA 2012-09-29 2012-09-29 [facility] [id number] 00:00:00 00:00:00 PA 2012-08-26 2012-08-26 [facility] [place] [id number] 00:00:00 00:00:00 PA 2012-05-31 2012-05-31 [facility] [place] [id number] 00:00:00 00:00:00 PA 2012-05-28 2012-05-28 [facility] [place] [id number] 00:00:00 00:00:00 PA 2012-05-04 2012-05-04 [facility] [place] [id number] 00:00:00 00:00:00 PA 2012-04-28 2012-04-28 [facility] [place] [id number] 00:00:00 00:00:00 PA 2012-03-22 2012-03-22 [facility] [place] [id number] 00:00:00 00:00:00 PA 2012-03-15 2012-03-15 [facility] [place] [facility] [place] [id number] 00:00:00 00:00:00 PA 2012-03-09 2012-03-09 [facility] [place] [id number] 00:00:00 00:00:00 PA 2012-01-22 2012-01-22 [facility] [place] [facility] [place] [id number] 00:00:00 00:00:00 PA 2012-01-21 2012-01-21 [facility] [place] [facility] [place] [id number] 00:00:00 00:00:00 PA 2012-01-20 2012-01-20 [facility] [place] [facility] [place] [id number] 00:00:00 00:00:00 PA 2012-01-15 2012-01-15 [facility] [place] [facility] [place] [id number] 00:00:00 00:00:00 PA 2011-12-26 2011-12-26 [facility] [place] [facility] [place] [id number] 00:00:00 00:00:00 PA 2011-12-26 2011-12-26 [facility] [place] [facility] [place] [id number] 00:00:00 00:00:00 PA 2011-11-18 2011-11-18 [facility] [place] [id number] 00:00:00 00:00:00 PA 2011-11-17 2011-11-17 [facility] [place] [id number] 00:00:00 00:00:00 PA 2011-11-14 2011-11-14 [facility] [place] [facility] [place] [id number] 00:00:00 00:00:00 PA 2011-07-07 2011-07-07 [facility] [place] [facility] [place] [id number] 00:00:00 00:00:00 PA 2011-07-04 2011-07-04 [facility] [place] [id number] 00:00:00 00:00:00 PA 2011-07-04 2011-07-04 [facility] [place] [facility] [place] [id number] 00:00:00 00:00:00 PA 2011-07-04 2011-07-04 [facility] [place] [place] [id number] 00:00:00 00:00:00 PA 2011-07-02 2011-07-02 [facility] [place] [id number] 00:00:00 00:00:00 PA 2011-05-22 2011-05-22 [facility] [place] [facility] [place] [id number] 00:00:00 00:00:00 PA 2011-05-20 2011-05-20 [facility] [place] [facility] [place] [id number] 00:00:00 00:00:00 PA 2011-05-06 2011-05-06 [facility] [place] [facility] [place] [id number] 00:00:00 00:00:00 PA 2011-03-21 2011-03-21 [facility] [place] [facility] [place] [id number] 00:00:00 00:00:00 PA 2011-03-19 2011-03-19 [facility] [place] [facility] [place] [id number] 00:00:00 00:00:00 PA 2011-03-19 2011-03-19 [facility] [place] [facility] [place] [id number] 00:00:00 00:00:00 PA 2011-01-20 2011-01-20 [facility] [place] [facility] [place] [id number] 00:00:00 00:00:00 PA 2011-01-20 2011-01-20 [facility] [place] [facility] [place] [id number] 00:00:00 00:00:00 PA 2010-12-09 2010-12-09 [facility] [place] [facility] [place] [id number] 00:00:00 00:00:00 PA 2010-11-08 2010-11-08 [facility] [place] [facility] [place] [id number] 00:00:00 00:00:00 PA 2010-08-09 2010-08-09 [facility] [place] [facility] [place] [id number] 00:00:00 00:00:00 PA 2010-07-19 2010-07-19 [facility] [place] [facility] [place] [id number] 00:00:00 00:00:00 PA 2010-06-19 2010-06-19 [facility] [place] [facility] [place] [id number] 00:00:00 00:00:00 PA 2010-05-30 2010-05-30 [facility] [place] [facility] [place] [id number] 00:00:00 00:00:00 PA 2010-05-30 2010-05-30 [facility] [place] [place] [id number] 00:00:00 00:00:00 PA 2010-05-30 2010-05-30 [facility] [place] [facility] [place] [id number] 00:00:00 00:00:00 PA 2010-03-22 2010-03-22 [facility] [place] [facility] [place] [id number] 00:00:00 00:00:00 PA 2010-03-22 2010-03-22 [facility] [place] [facility] [place] [id number] 00:00:00 00:00:00 PA 2010-03-01 2010-03-01 [facility] [place] [facility] [place] [id number] 00:00:00 00:00:00 PA 2010-02-20 2010-02-20 [facility] [place] [place] [id number] 00:00:00 00:00:00 PA 2010-02-19 2010-02-19 [facility] [place] [place] [id number] 00:00:00 00:00:00 PA 2010-02-19 2010-02-19 [facility] [place] [facility] [place] [id number] 00:00:00 00:00:00 PA 2009-12-20 2009-12-20 [facility] [place] [place] [id number] 00:00:00 00:00:00 PA 2009-12-07 2009-12-07 [facility] [place] [facility] [place] [id number] 00:00:00 00:00:00 PA Social History This patient has no known social history. Vital Signs Vital Name Observation Time Observation Value Comments height 2019-08-23 09:00:00 69 [in_us] weight 2019-08-23 09:00:00 219.4 [lb_av] bmi 2019-08-23 09:00:00 32.40 kg/m2 heart rate 2019-08-23 09:00:00 93 /min blood pressure systolic 2019-08-23 09:00:00 115 mm[Hg] blood pressure diastolic 2019-08-23 09:00:00 79 mm[Hg] height 2019-04-26 13:00:00 69 [in_us] weight 2019-04-26 13:00:00 217 [lb_av] bmi 2019-04-26 13:00:00 32.04 kg/m2 heart rate 2019-04-26 13:00:00 91 /min blood pressure systolic 2019-04-26 13:00:00 109 mm[Hg] blood pressure diastolic 2019-04-26 13:00:00 76 mm[Hg] blood pressure systolic 2019-04-20 09:45:00 107 mm[Hg] blood pressure diastolic 2019-04-20 09:45:00 75 mm[Hg] height 2019-04-20 09:45:00 69 [in_us] weight 2019-04-20 09:45:00 217.4 [lb_av] bmi 2019-04-20 09:45:00 32.10 kg/m2 heart rate 2019-04-20 09:45:00 86 /min height 2019-05-20 09:00:00 5 ft 9 in in [in_us] weight 2019-05-20 09:00:00 215 [lb_av] bmi 2019-05-20 09:00:00 31.75 kg/m2 heart rate 2019-05-20 09:00:00 91 /min temperature 2019-05-20 09:00:00 97 [degF] blood pressure systolic 2019-05-20 09:00:00 109 mm[Hg] blood pressure diastolic 2019-05-20 09:00:00 76 mm[Hg] height 2019-01-19 09:15:00 69 [in_us] weight 2019-01-19 09:15:00 200.8 [lb_av] bmi 2019-01-19 09:15:00 29.65 kg/m2 heart rate 2019-01-19 09:15:00 89 /min blood pressure systolic 2019-01-19 09:15:00 102 mm[Hg] blood pressure diastolic 2019-01-19 09:15:00 71 mm[Hg] height 2018-12-06 09:15:00 69 [in_us] weight 2018-12-06 09:15:00 204.8 [lb_av] bmi 2018-12-06 09:15:00 30.24 kg/m2 heart rate 2018-12-06 09:15:00 69 /min blood pressure systolic 2018-12-06 09:15:00 113 mm[Hg] blood pressure diastolic 2018-12-06 09:15:00 73 mm[Hg] height 2018-11-19 09:15:00 69 [in_us] weight 2018-11-19 09:15:00 204.8 [lb_av] bmi 2018-11-19 09:15:00 30.24 kg/m2 heart rate 2018-11-19 09:15:00 80 /min blood pressure systolic 2018-11-19 09:15:00 125 mm[Hg] blood pressure diastolic 2018-11-19 09:15:00 83 mm[Hg] height 2018-10-28 11:15:00 69 [in_us] weight 2018-10-28 11:15:00 211.0 [lb_av] bmi 2018-10-28 11:15:00 31.16 kg/m2 heart rate 2018-10-28 11:15:00 95 /min temperature 2018-10-28 11:15:00 97.7 [degF] blood pressure systolic 2018-10-28 11:15:00 100 mm[Hg] blood pressure diastolic 2018-10-28 11:15:00 73 mm[Hg] height 2018-09-06 10:15:00 69 [in_us] weight 2018-09-06 10:15:00 206.2 [lb_av] bmi 2018-09-06 10:15:00 30.45 kg/m2 heart rate 2018-09-06 10:15:00 85 /min blood pressure systolic 2018-09-06 10:15:00 94 mm[Hg] blood pressure diastolic 2018-09-06 10:15:00 64 mm[Hg] height 2018-08-09 15:45:00 69 [in_us] weight 2018-08-09 15:45:00 199.6 [lb_av] bmi 2018-08-09 15:45:00 29.47 kg/m2 heart rate 2018-08-09 15:45:00 83 /min blood pressure systolic 2018-08-09 15:45:00 94 mm[Hg] blood pressure diastolic 2018-08-09 15:45:00 67 mm[Hg] height 2017-10-26 09:30:00 69 [in_us] weight 2017-10-26 09:30:00 181.2 [lb_av] bmi 2017-10-26 09:30:00 26.76 kg/m2 heart rate 2017-10-26 09:30:00 82 /min blood pressure systolic 2017-10-26 09:30:00 110 mm[Hg] blood pressure diastolic 2017-10-26 09:30:00 77 mm[Hg]
== END ==
LOC: WI 08:56
PROVIDERS: ATTEND Internal Medicine
DX: Z12.31 Encounter for screening mammogram for malignant neoplasm of breast (principal)
CPT/HCPCS: 77063; 77067